=== PATIENT | male | born 1970 | race Caucasian/White ===

== ENCOUNTER 2017-04-01 18:15 | Observation (INO) ==
[2017-04-01] MEDS ORDERED: ASPIRIN 325 MG TABLET PO STA (19:39)
[2017-04-01] MEDS ORDERED: NITROGLYCERIN 2% OINT 1 INCH/GM PACK TOP STA (19:39)
[2017-04-01] MEDS ORDERED: ALUM/MAG/SIMETH/LIDO VISC 1:1 30 ML BOTTLE PO STA (19:39)
[2017-04-01] MEDS ORDERED: PANTOPRAZOLE 40 MG VIAL IV STA (19:39)
[2017-04-01] MEDS ORDERED: SODIUM CHLORIDE 0.9% 500 ML IV STA (19:39)
[2017-04-01] MEDS ORDERED: ONDANSETRON 4 MG/2 ML VIAL IV STA (19:39)
--- NOTE | 2017-04-01 19:42 | Emergency Department Note ---
Kennedi Davis Brittany, am scribing for, and in the presence of, Mariusz Flores MD 19:22. Sandra Davis Charles R, MD, personally performed the services described in this documentation, ascribed by Anahi Kolb in my presence, and it is both accurate and complete 942 . Arrival - Arrival Chief Complaint: Chest Pain Stated Complaint: Chest pains/elevated bp ED Nursing Triage Note: Chest pain onset x 3-4 hours - pt states that he has been drinking all day - pt very strong of ETOH Mode of Arrival: Wheelchair Limitations: No Limitations Source: Patient - History of Present Illness HPI Narrative: This is a 46 y/o white male,who presents to the ED with c/o CP which started 3- 4 hours ago. He states he was seen in [place], [place] for the same complaint last week and was told his BP was elevated. He was supposedly started on BP medication but has not taken the medication. He reports diaphoresis and nausea. Pt reports he has been drinking 5 beers today. Pt has no other complaints/pain in the ED at this time. Pt has a PMHx of Depression, HTN, and liver cirrhosis ( although at the time of the exam pt denies cirrhosis.). Pt denies a surgical hx. Pt denies a family medical Hx. Pt is a frequent drinker. Onset (ago): hour(s) (Started 3-4 hours ago.) Consistency: constant Severity: moderate Allergies/Adverse Reactions: Allergies Allergy/AdvReac Type Severity Reaction Status Date / Time No Known Allergies Allergy Verified 05/27/16 21:51 Home Medications: Home Medications Medication Instructions Recorded Confirmed Type Unknown Blood Pressure 0 mg PO DAILY 04/01/17 History Review of System - Review of System 12 point system: reviewed and no additional remarkable complaints except as stated - Review of System Constitutional: Present: diaphoresis Cardiovascular: Present: chest pain Gastrointestinal: Present: nausea Medical,Surgical,& Family Hx - Medical History Cardio: History of: Hypertension (Stopped meds x3 yrs ago.) Psychological: History of: Depression Neurology: No history of: Cerebrovascular Accident (Pt denies) Gastrointestinal: History of: Liver Problems (cirrohsis) - Social History Smoking Status: Never smoker Frequency of Alcohol Use: Frequently Type of Drug Use: None Exam Vital Signs: Vital Signs Temperature 97.2 F L 04/01/17 18:23 Pulse Rate 90 04/01/17 18:45 Respiratory Rate 19 04/01/17 18:45 Blood Pressure 122/82 04/01/17 18:45 O2 Sat by Pulse Oximetry 95 04/01/17 18:45 - General General appearance: appears intoxicated (Smells heavily of ETHO) - Eye Eye exam: Present: nystagmus - ENT ENT exam: Present: normal exam, normal oropharynx, mucous membranes moist, TM's normal bilaterally, normal external ear exam - Neck Neck exam: Present: normal inspection, full ROM, trachea midline. Absent: tenderness, meningismus, lymphadenopathy, thyromegaly - Chest Chest inspection: Present: normal inspection, symmetric chest wall rise, tenderness (Lower Chest wall tendnerness). Absent: rash, abscess - Respiratory Respiratory exam: Present: rhonchi (Bilateral Rhonic) - Cardiovascular Cardiovascular exam: Present: bradycardia, normal heart sounds. Absent: murmur , rubs, gallop, clicks - Abdominal Exam Abdominal exam: Present: soft, normal bowel sounds. Absent: distention, tenderness, guarding, rebound, rigidity - Rectal Exam Rectal exam: Present: deferred - Extremities Exam Extremities exam: Present: normal inspection, full ROM, normal capillary refill. Absent: tenderness, pedal edema, joint swelling, calf tenderness - Back Exam Back exam: Present: normal inspection, full ROM. Absent: tenderness, muscle spasm, rashes - Neurological Exam Neurological exam: Present: alert, oriented X3, CN II-XII intact. Absent: motor sensory deficit - Psychiatric Psychiatric exam: Present: normal affect, normal mood. Absent: depressed, agitated, anxious, flat affect, manic - Skin Skin exam: Present: warm, dry, intact, normal color. Absent: rash, cyanosis, diaphoresis, erythema, pallor, mottled Course - Consultations Consultation #1: Hospitalist will admit patient Time: 21:43 Results - Labs CBC & BMP: 04/01/17 19:40 04/01/17 19:40 Lab Results: I have reviewed the patients labs Labs: Laboratory Tests 04/01/17 04/01/17 04/01/17 19:40 19:40 19:40 WBC RBC Hgb Hct MCV MCH MCHC RDW Plt Count MPV Neut % (Auto) Lymph % (Auto) [place] % (Auto) Eos % (Auto) Baso % (Auto) Neut # (Auto) Lymph # (Auto) [place] # (Auto) Eos # (Auto) Baso # (Auto) Immature Gran % Nucleated RBC % Immature Gran # Nucleated RBCs # INR 1.0 PT Patient/Control Mix 10.7 D-Dimer, Quantitative <= 0.5 Sodium 145 Potassium 3.7 Chloride 109 H Carbon Dioxide 26 Anion Gap 13.7 BUN 6 L Creatinine 0.70 GFR Calculation 111 BUN/Creatinine Ratio 8.00 Glucose 99 Calculated Osmolality 285.7 Calcium 8.1 L Magnesium 2.1 Total Bilirubin < 0.39 AST 55 H ALT 70 H Alkaline Phosphatase 125 H Troponin I < 0.015 Total Protein 7.2 Albumin 3.9 Globulin 3.3 Albumin/Globulin Ratio 1.1 Lipase 206.0 Urine Color Urine Appearance Urine pH Ur Specific [place] Urine Protein Urine Glucose (UA) Urine Ketones Urine Blood Urine Nitrate Urine Bilirubin Urine Urobilinogen Urine Leukocytes Urine RBC Urine WBC Ur Culture Indicated? Urine Opiates Screen Ur Barbiturates Screen Ur Phencyclidine Scrn U Amphetamine/Methamph U Benzodiazepines Scrn U Cocaine Metab Screen U Cannabinoids Screen 04/01/17 04/01/17 04/01/17 19:40 19:42 19:42 WBC 5.8 RBC 4.85 Hgb 15.7 Hct 45.0 MCV 92.8 MCH 32 MCHC 34.9 RDW 13.0 Plt Count 250 MPV 8.7 L Neut % (Auto) 49.7 Lymph % (Auto) 36.8 Tripp % (Auto) 10.3 Eos % (Auto) 1.7 Baso % (Auto) 1.0 H Neut # (Auto) 2.9 Lymph # (Auto) 2.2 Tripp # (Auto) 0.6 Eos # (Auto) 0.1 Baso # (Auto) 0.1 Immature Gran % 0.5 Nucleated RBC % 0.0 Immature Gran # 0.03 Nucleated RBCs # 0.00 INR PT Patient/Control Mix D-Dimer, Quantitative Sodium Potassium Chloride Carbon Dioxide Anion Gap BUN Creatinine GFR Calculation BUN/Creatinine Ratio Glucose Calculated Osmolality Calcium Magnesium Total Bilirubin AST ALT Alkaline Phosphatase Troponin I Total Protein Albumin Globulin Albumin/Globulin Ratio Lipase Urine Color Straw Urine Appearance Clear Urine pH 5.0 Ur Specific [place] 1.003 Urine Protein Negative Urine Glucose (UA) Negative Urine Ketones Negative Urine Blood Negative Urine Nitrate Negative Urine Bilirubin Negative Urine Urobilinogen < 2.0 H Urine Leukocytes Negative Urine RBC <1 Urine WBC <1 Ur Culture Indicated? Not indicated Urine Opiates Screen Negative Ur Barbiturates Screen Negative Ur Phencyclidine Scrn Negative U Amphetamine/Methamph Negative U Benzodiazepines Scrn Negative U Cocaine Metab Screen Negative U Cannabinoids Screen Negative Laboratory Tests 04/01/17 04/01/17 19:40 20:45 B-Natriuretic Peptide < 2 L Serum Alcohol 423 - Diagnostic Findings Procedure: Chest x-ray: report reviewed by me (Nothing acute. ) Disposition Clinical Impression: Chest pain, Acute alcohol intoxication, Elevated liver enzymes Case discussed with: patient Disposition: Still a Patient Condition: Stable Time of Disposition: 21:44
[2017-04-01] MEDS ORDERED: PANTOPRAZOLE 40 MG VIAL IV ONE (19:48)
[2017-04-01] MEDS ORDERED: NITROGLYCERIN 2% OINT 1 INCH/GM PACK TOP ONE (19:48)
[2017-04-01] MEDS ORDERED: ONDANSETRON 4 MG/2 ML VIAL ONE (19:48)
[2017-04-01] MEDS ORDERED: ASPIRIN 325 MG TABLET ONE (19:48)
[2017-04-01] MEDS ORDERED: ALUM/MAG/SIMETH/LIDO VISC 1:1 30 ML BOTTLE PO ONE (19:49)
[2017-04-01 19:50] LABS: Apearance,Urine CLEAR (Clear); Bilirubin,Urine Negative (Negative); Blood, Urine Negative (Negative); Glucose,Urine (UA) Negative (Negative); Ketones,Urine Negative (Negative); Nitrite,Urine Negative (Negative); Protein,Urine Negative; RBC,Urine <1 /HPF (0-4); Urine Color Straw (Yellow); Urine Specific Gravity 1.003 (1.001-1.035); Urine Urobilinogen < 2.0 EU/DL (0.2-1.0); WBC,Urine <1 /HPF (0-6)
[2017-04-01 19:54] LABS: Basophils # 0.1 10*3/uL (0.0-0.2); Eosinophils # 0.1 10*3/uL (0.0-0.87); Eosinophils % 1.7 % (0.00-10.9); Hemoglobin 15.7 GM/DL (14.0-18.0); Immature Granulocytes % 0.5 %; Immature Granulocytes Absolute 0.03 #; Lymphocytes # 2.2 10*3/uL (1.4-4.0); Lymphocytes % 36.8 % (21.2-54.2); Mean Corpuscular HGB Conc 34.9 GM/DL (32-36); Mean Corpuscular Hemoglobin 32 PG (27-34); Mean Corpuscular Volume 92.8 FL (87-102); Mean Platelet Volume 8.7 FL (9.6-12.0); Monocytes # 0.6 10*3/uL (0.11-0.8); Monocytes % 10.3 % (1.7-12.7); Neutrophils # 2.9 10*3/uL (1.4-7.4); Neutrophils % 49.7 % (38.7-73.9); Platelet Count 250 T/CUMM (130-400); Red Blood Count 4.85 MC/CUMM (3.8-5.5); White Blood Count 5.8 T/CUMM (4-12)
[2017-04-01 20:03] LABS: D-Dimer <= 0.5 MG/L FEU; PT Patient Result 10.7 SECS
[2017-04-01 20:07] LABS: Barbiturates Screen,Urine Negative (Negative); Benzodiazepines Screen,Urine Negative (Negative); Cannabinoid Screen,Urine Negative (Negative); Opiate Screen,Urine Negative (Negative); Phencyclidine Screen,Urine Negative (Negative)
--- NOTE | 2017-04-01 20:11 | XRay Report ---
Portable chest Date: 04/01/2017 Clinical history: Chest pain Comparison: 09/23/2016 Technique: Portable AP sitting chest Findings: The heart is normal in size. Calcified granulomata/nodes with minimal chronic scarring. Stable mediastinum and osseous structures. Impression: No acute cardiopulmonary pathology identified. PROCEDURE INTERPRETED AT [facility] DEPARTMENT OF RADIOLOGY Final Report Signed by: Dr. Adelia Petty
[2017-04-01 20:12] LABS: Alanine Aminotransferase 70 U/L (16-61); Albumin 3.9 G/DL (3.4-5.0); Alkaline Phosphatase 125 U/L (45-117); Aspartate Amino Transferase 55 U/L (0-37); Bilirubin,Total < 0.39 MG/DL (0.2-1.0); Blood Urea Nitrogen 6 MG/DL (7-18); Calcium 8.1 MG/DL (8.5-10.1); Glucose 99 MG/DL (74-106); Magnesium 2.1 MG/DL (1.8-2.4); Osmolality,Calculated 285.7 MOS/KG (273-304); Potassium 3.7 MMOL/L (3.5-5.1); Sodium 145 MMOL/L (136-145); Total Protein 7.2 G/DL (6.4-8.3)
[2017-04-01] MEDS ORDERED: SODIUM CHLORIDE 0.9% 1,000 ML IV STA (21:30)
[2017-04-01] MEDS ORDERED: BISACODYL 5 MG TABLET PO PRN (22:16)
[2017-04-01] MEDS ORDERED: ONDANSETRON 4 MG/2 ML VIAL IV PRN (22:16)
[2017-04-01] MEDS ORDERED: ACETAMINOPHEN 325 MG TABLET PO PRN (22:16)
[2017-04-01] MEDS ORDERED: LORazepam 2 MG/1 ML VIAL IV PRN (22:18)
--- NOTE | 2017-04-01 22:24 | Hospitalist History & Physical ---
Assessment and Plan (1) Chest pressure Status: Acute Current Visit: Yes (2) Acute alcohol intoxication Status: Acute Current Visit: Yes Qualifiers: Complication of substance-induced condition: with unspecified complication Qualified Code(s): F10.929 - Alcohol use, unspecified with intoxication, unspecified (3) Hypertension Status: Acute Current Visit: Yes Qualifiers: Hypertension type: essential hypertension Qualified Code(s): I10 - Essential (primary) hypertension (4) Medical non-compliance Status: Acute Current Visit: Yes (5) Alcohol dependence Status: Acute Assessment and plan: Plan: Observe on telemetry We will check another set of cardiac enzymes in the morning Supportive care for chest pressure Start antihypertensive medication Banana bag Current Visit: Yes Qualifiers: Substance use status: with intoxication Complication of substance-induced condition: with unspecified complication Qualified Code(s): F10.229 - Alcohol dependence with intoxication, unspecified History of Present Illness Chief complaint: Sharp chest pain followed by persistent chest pressure History of present illness: Mr. Scott is a 46 year old male with a history of hypertension, noncompliant with medications, alcoholism, questionable history of cirrhosis, apparently was sitting in his friend's truck when he had acute onset of sharp stabbing chest pain in the middle of his chest around 5 PM. This lasted a few seconds and since that time he has had severe chest heaviness/pressure. He states it feels like someone sitting on his chest. Pain did not radiate, pressure is located in the middle of the chest. He denies shortness of breath, diaphoresis, nausea or vomiting. Additionally he is intoxicated with an alcohol level of over 400. He has been in alcohol rehab before however over the last 2 weeks he began drinking again due to stress. He denies illicit drugs, smoking, and drug screen is negative. He never filled his blood pressure medications. He denies headache. He denies history of diabetes or heart disease. Home Medications Medication Instructions Recorded Confirmed Type Unknown Blood Pressure 0 mg PO DAILY 04/01/17 History Allergies Allergy/AdvReac Type Severity Reaction Status Date / Time No Known Allergies Allergy Verified 05/27/16 21:51 Medical,Surgical,& Family Hx - Medical History Cardio: History of: Hypertension (Stopped meds x3 yrs ago.) Psychological: History of: Depression, Psychiatric/Substance Abuse Tx (Alcohol rehab) Endocrine: No history of: Diabetes Mellitus (NIDDM) Respiratory: No history of: COPD Gastrointestinal: History of: Liver Problems (cirrohsis) - Surgical History Additional Surgical History: Patient denies history - Family History Family History: Reports;: Family Hypertension - Social History Smoking Status: Never smoker Frequency of Alcohol Use: Frequently Type of Drug Use: None Marital Status: Unknown Functional capacity: independent ambulation Review of systems: A 12 point review of systems is negative except as specified in the HPI Exam - Constitutional Vitals: Period Temp Pulse Resp BP Sys/Maharaj Pulse Ox Last 24 Hr 97.2 F-97.2 F 90-97 16-20 122-139/82-88 95-97 Exam: EXAM: CONSTITUTIONAL: Appears older than stated age, nontoxic, NAD HEENT: NC, AT, OP benign, CASSIE, EOMI CV: RRR no m/g/r RESP: clear B/L, no w/r/r GI: abd soft, NT, ND, +bowel sounds INTEGUMENTARY: no lesions or rash EXTREMITIES: no c/c/e NEURO: no focal deficits PSYCH: Intoxicated but oriented and cooperative Results - Labs CBC & BMP: 04/01/17 19:40 04/01/17 19:40 Lab Results: I have reviewed the past 24 hour labs - EKG EKG shows: sinus rhythm - Diagnostic Findings Procedure: Chest x-ray: image reviewed by me, report reviewed by me
[2017-04-01] MEDS ORDERED: THIAMINE INJ 100 MG, FOLIC ACID INJ 1 MG, MAGNESIUM SULF INJ 2 GM, MULTIVITAMIN INJ 10 ... IV SCH (22:30)
[2017-04-01] MEDS ORDERED: hydrALAZINE 20 MG/1 ML VIAL IV PRN (23:21)
[2017-04-02] MEDS: chlordiazePOXIDE 25 MG CAPSULE PO SCH ×3 (00:36→11:22)
[2017-04-02] MEDS: 1: THIAMINE INJ 100 MG, FOLIC ACID INJ 1 MG, MAGNESIUM SULF INJ 2 GM, MULTIVITAMIN INJ 1 IV SCH ×2 (00:36→11:33)
[2017-04-02 02:11] LABS: Basophils # 0.1 10*3/uL (0.0-0.2); Basophils % 1.2 % (0.0-0.8); Eosinophils # 0.1 10*3/uL (0.0-0.87); Eosinophils % 1.2 % (0.00-10.9); Hematocrit 41.1 VOL% (42.0-52.0); Hemoglobin 14.1 GM/DL (14.0-18.0); Immature Granulocytes % 0.4 %; Immature Granulocytes Absolute 0.02 #; Lymphocytes # 1.9 10*3/uL (1.4-4.0); Lymphocytes % 37.8 % (21.2-54.2); Mean Corpuscular HGB Conc 34.3 GM/DL (32-36); Mean Corpuscular Hemoglobin 32 PG (27-34); Mean Corpuscular Volume 93.4 FL (87-102); Mean Platelet Volume 8.4 FL (9.6-12.0); Monocytes # 0.4 10*3/uL (0.11-0.8); Monocytes % 8.6 % (1.7-12.7); Neutrophils # 2.6 10*3/uL (1.4-7.4); Neutrophils % 50.8 % (38.7-73.9); Platelet Count 204 T/CUMM (130-400); Red Cell Distribution Width 13.2 % (9.3-17.3); White Blood Count 5.1 T/CUMM (4-12)
[2017-04-02 02:47] LABS: Troponin I Only < 0.015 NG/ML (0.00-0.045)
[2017-04-02 02:48] LABS: Albumin 3.2 G/DL (3.4-5.0); Bilirubin,Total 0.5 MG/DL (0.2-1.0); Calcium 7.4 MG/DL (8.5-10.1); Magnesium 2.4 MG/DL (1.8-2.4); Osmolality,Calculated 286.6 MOS/KG (273-304); Potassium 4.3 MMOL/L (3.5-5.1); Risk Ratio 2.15; Total Protein 5.8 G/DL (6.4-8.3)
--- NOTE | 2017-04-02 04:55 | EKG Report ---
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
[2017-04-02] MEDS ORDERED: ENOXAPARIN 40 MG/0.4 ML SYRINGE SUBCUT SCH (09:00)
[2017-04-02] MEDS ORDERED: PANTOPRAZOLE 40 MG TABLET PO SCH (09:00)
--- NOTE | 2017-04-02 11:26 | Discharge Summary ---
Hospital Course - Hospital Course Hospital Course: Mr Scott presented to ER intoxicated with alcohol and complaining of atypical chest pain- 1 minute of epigastric/substernal stabbing pain then a fullness in that location that did not vary and had no associated symptoms. His troponins were normal times 5. His EKG showed no acute changes. His pain improved. He had been sober for 5.5 months but 2 weeks ago started drinking again and was intoxicated at presentation. He denies hematemesis or hematochezia or black stools. No nausea or vomiting and no NSAID use. He was started on BP meds that he hasn't taken about 2-3 weeks ago, an dhere his BP is good, though lower after librium given. I discussed with him that his labile blood pressure could be related to his drinking. He says he is going to stop now as he did before, stay away from his bad crowd in [place] and focus on work. I think the most likely cause of his chest pain is GERD and will send him home on protonix. If his chest pain returns he was instructed to return to the ER, and he may need stress testing. He can stop his antiHTN med. He has also been counseled to stop using tobacco for 5 minutes. He will take librium, protonix, and MVI at discharge. He should see his doctor this week. - Time spent with patient Time with patient DS: Greater than 30 minutes (exam, documentation, medicine reconciliation, discharge discussion) Diagnosis - Discharge Diagnosis (1) Atypical chest pain Status: Acute (2) Acute alcohol intoxication Status: Acute (3) Elevated liver enzymes Status: Acute (4) Medical non-compliance Status: Chronic (5) Alcohol dependence Status: Chronic Specialty Discharge - Follow Up or Referrals Follow up with: His, PCP [Other] (make him an appointment for this week with his PCP in [facility]) Discharge Plan - Discharge Data Disposition: Disch To Home/Self Care Condition at Discharge: Stable Discharge Diet: advance to your usual diet, other (stop drinking alcohol) - Discharge Medications New chlordiazePOXIDE [Librium] 10 mg PO TID #18 capsule Multivitamin with Folic Acid [One Daily Essential Tablet] 400 mcg PO DAILY # 100 tablet Pantoprazole Tab [Protonix Tab] 40 mg PO DAILY #30 tablet No Action Unknown Blood Pressure 0 mg PO DAILY - Follow Up or Referral Follow Up: His, PCP [Other] (make him an appointment for this week with his PCP in [facility]) - Forms/Instructions Exam - Constitutional Vitals: Period Temp Pulse Resp BP Sys/Maharaj Pulse Ox Last 24 Hr 97.2 F-99.0 F 82-97 16-20 94-145/50-99 95-100 General appearance: normal weight, no acute distress Exam: repeat Bp this am 117/65 - Head Head exam: Present: normocephalic, atraumatic - Eye Eye exam: Present: EOMI. Absent: scleral icterus - Respiratory Respiratory exam: Present: clear to auscultation bilaterally - Cardiovascular Cardiovascular exam: Present: regular rate and rhythm (chest wall not tender) - GI/Abdominal GI/Abdominal exam: Present: normal bowel sounds, soft. Absent: tenderness - Extremities Exam Extremities exam: Absent: edema - Neurological Exam Neurological exam: Present: alert, oriented X3, CN II-XII intact. Absent: motor sensory deficit - Skin Skin exam: Present: warm, dry. Absent: rash Discharge Results Labs on day of discharge: Labs from last 24 hours 04/02/17 04/02/17 04/02/17 02:03 02:03 02:03 WBC RBC Hgb Hct MCV MCH MCHC RDW Plt Count MPV Neut % (Auto) Lymph % (Auto) [place] % (Auto) Eos % (Auto) Baso % (Auto) Neut # (Auto) Lymph # (Auto) [place] # (Auto) Eos # (Auto) Baso # (Auto) Immature Gran % Nucleated RBC % Immature Gran # Nucleated RBCs # INR PT Patient/Control Mix D-Dimer, Quantitative Sodium Potassium Chloride Carbon Dioxide Anion Gap BUN Creatinine GFR Calculation BUN/Creatinine Ratio Glucose Hemoglobin A1c 5.5 Calculated Osmolality Calcium Magnesium Total Bilirubin AST ALT Alkaline Phosphatase Total Creatine Kinase 120 CK-MB (CK-2) 1.3 Troponin I < 0.015 < 0.015 B-Natriuretic Peptide Total Protein Albumin Globulin Albumin/Globulin Ratio Triglycerides Cholesterol LDL Cholesterol VLDL Cholesterol HDL Cholesterol Heart Disease Risk Ratio Lipase Urine Color Urine Appearance Urine pH Ur Specific [place] Urine Protein Urine Glucose (UA) Urine Ketones Urine Blood Urine Nitrate Urine Bilirubin Urine Urobilinogen Urine Leukocytes Urine RBC Urine WBC Ur Culture Indicated? Urine Opiates Screen Ur Barbiturates Screen Ur Phencyclidine Scrn U Amphetamine/Methamph U Benzodiazepines Scrn U Cocaine Metab Screen U Cannabinoids Screen Serum Alcohol 04/02/17 04/02/17 04/01/17 02:03 02:03 23:15 WBC 5.1 RBC 4.40 Hgb 14.1 Hct 41.1 L MCV 93.4 MCH 32 MCHC 34.3 RDW 13.2 Plt Count 204 MPV 8.4 L Neut % (Auto) 50.8 Lymph % (Auto) 37.8 [place] % (Auto) 8.6 Eos % (Auto) 1.2 Baso % (Auto) 1.2 H Neut # (Auto) 2.6 Lymph # (Auto) 1.9 [place] # (Auto) 0.4 Eos # (Auto) 0.1 Baso # (Auto) 0.1 Immature Gran % 0.4 Nucleated RBC % 0.0 Immature Gran # 0.02 Nucleated RBCs # 0.00 INR PT Patient/Control Mix D-Dimer, Quantitative Sodium 146 H Potassium 4.3 Chloride 113 H Carbon Dioxide 24 Anion Gap 13.3 BUN 7 Creatinine 0.70 GFR Calculation 117 BUN/Creatinine Ratio 10.00 Glucose 78 Hemoglobin A1c Calculated Osmolality 286.6 Calcium 7.4 L Magnesium 2.4 Total Bilirubin 0.50 AST 43 H ALT 57 Alkaline Phosphatase 109 Total Creatine Kinase CK-MB (CK-2) Troponin I < 0.015 B-Natriuretic Peptide Total Protein 5.8 L Albumin 3.2 L Globulin 2.6 Albumin/Globulin Ratio 1.2 Triglycerides 65 Cholesterol 181 LDL Cholesterol 78.0 VLDL Cholesterol 13.0 HDL Cholesterol 84 H Heart Disease Risk Ratio 2.15 Lipase Urine Color Urine Appearance Urine pH Ur Specific [place] Urine Protein Urine Glucose (UA) Urine Ketones Urine Blood Urine Nitrate Urine Bilirubin Urine Urobilinogen Urine Leukocytes Urine RBC Urine WBC Ur Culture Indicated? Urine Opiates Screen Ur Barbiturates Screen Ur Phencyclidine Scrn U Amphetamine/Methamph U Benzodiazepines Scrn U Cocaine Metab Screen U Cannabinoids Screen Serum Alcohol 04/01/17 04/01/17 04/01/17 20:45 20:44 19:42 WBC RBC Hgb Hct MCV MCH MCHC RDW Plt Count MPV Neut % (Auto) Lymph % (Auto) [place] % (Auto) Eos % (Auto) Baso % (Auto) Neut # (Auto) Lymph # (Auto) [place] # (Auto) Eos # (Auto) Baso # (Auto) Immature Gran % Nucleated RBC % Immature Gran # Nucleated RBCs # INR PT Patient/Control Mix D-Dimer, Quantitative Sodium Potassium Chloride Carbon Dioxide Anion Gap BUN Creatinine GFR Calculation BUN/Creatinine Ratio Glucose Hemoglobin A1c Calculated Osmolality Calcium Magnesium Total Bilirubin AST ALT Alkaline Phosphatase Total Creatine Kinase CK-MB (CK-2) Troponin I < 0.015 B-Natriuretic Peptide Total Protein Albumin Globulin Albumin/Globulin Ratio Triglycerides Cholesterol LDL Cholesterol VLDL Cholesterol HDL Cholesterol Heart Disease Risk Ratio Lipase Urine Color Urine Appearance Urine pH Ur Specific [place] Urine Protein Urine Glucose (UA) Urine Ketones Urine Blood Urine Nitrate Urine Bilirubin Urine Urobilinogen Urine Leukocytes Urine RBC Urine WBC Ur Culture Indicated? Urine Opiates Screen Negative Ur Barbiturates Screen Negative Ur Phencyclidine Scrn Negative U Amphetamine/Methamph Negative U Benzodiazepines Scrn Negative U Cocaine Metab Screen Negative U Cannabinoids Screen Negative Serum Alcohol 423 04/01/17 04/01/17 04/01/17 19:42 19:40 19:40 WBC 5.8 RBC 4.85 Hgb 15.7 Hct 45.0 MCV 92.8 MCH 32 MCHC 34.9 RDW 13.0 Plt Count 250 MPV 8.7 L Neut % (Auto) 49.7 Lymph % (Auto) 36.8 [place] % (Auto) 10.3 Eos % (Auto) 1.7 Baso % (Auto) 1.0 H Neut # (Auto) 2.9 Lymph # (Auto) 2.2 [place] # (Auto) 0.6 Eos # (Auto) 0.1 Baso # (Auto) 0.1 Immature Gran % 0.5 Nucleated RBC % 0.0 Immature Gran # 0.03 Nucleated RBCs # 0.00 INR PT Patient/Control Mix D-Dimer, Quantitative Sodium Potassium Chloride Carbon Dioxide Anion Gap BUN Creatinine GFR Calculation BUN/Creatinine Ratio Glucose Hemoglobin A1c Calculated Osmolality Calcium Magnesium Total Bilirubin AST ALT Alkaline Phosphatase Total Creatine Kinase CK-MB (CK-2) Troponin I B-Natriuretic Peptide < 2 L Total Protein Albumin Globulin Albumin/Globulin Ratio Triglycerides Cholesterol LDL Cholesterol VLDL Cholesterol HDL Cholesterol Heart Disease Risk Ratio Lipase Urine Color Straw Urine Appearance Clear Urine pH 5.0 Ur Specific [place] 1.003 Urine Protein Negative Urine Glucose (UA) Negative Urine Ketones Negative Urine Blood Negative Urine Nitrate Negative Urine Bilirubin Negative Urine Urobilinogen < 2.0 H Urine Leukocytes Negative Urine RBC <1 Urine WBC <1 Ur Culture Indicated? Not indicated Urine Opiates Screen Ur Barbiturates Screen Ur Phencyclidine Scrn U Amphetamine/Methamph U Benzodiazepines Scrn U Cocaine Metab Screen U Cannabinoids Screen Serum Alcohol 04/01/17 04/01/17 04/01/17 19:40 19:40 19:40 WBC RBC Hgb Hct MCV MCH MCHC RDW Plt Count MPV Neut % (Auto) Lymph % (Auto) [place] % (Auto) Eos % (Auto) Baso % (Auto) Neut # (Auto) Lymph # (Auto) [place] # (Auto) Eos # (Auto) Baso # (Auto) Immature Gran % Nucleated RBC % Immature Gran # Nucleated RBCs # INR 1.0 PT Patient/Control Mix 10.7 D-Dimer, Quantitative <= 0.5 Sodium 145 Potassium 3.7 Chloride 109 H Carbon Dioxide 26 Anion Gap 13.7 BUN 6 L Creatinine 0.70 GFR Calculation 111 BUN/Creatinine Ratio 8.00 Glucose 99 Hemoglobin A1c Calculated Osmolality 285.7 Calcium 8.1 L Magnesium 2.1 Total Bilirubin < 0.39 AST 55 H ALT 70 H Alkaline Phosphatase 125 H Total Creatine Kinase CK-MB (CK-2) Troponin I < 0.015 B-Natriuretic Peptide Total Protein 7.2 Albumin 3.9 Globulin 3.3 Albumin/Globulin Ratio 1.1 Triglycerides Cholesterol LDL Cholesterol VLDL Cholesterol HDL Cholesterol Heart Disease Risk Ratio Lipase 206.0 Urine Color Urine Appearance Urine pH Ur Specific [place] Urine Protein Urine Glucose (UA) Urine Ketones Urine Blood Urine Nitrate Urine Bilirubin Urine Urobilinogen Urine Leukocytes Urine RBC Urine WBC Ur Culture Indicated? Urine Opiates Screen Ur Barbiturates Screen Ur Phencyclidine Scrn U Amphetamine/Methamph U Benzodiazepines Scrn U Cocaine Metab Screen U Cannabinoids Screen Serum Alcohol DS: Provider Date of admission: 04/01/17 22:16 Primary care physician: . No PCP Attending physician on admission: Agustín Gonzalez DO Consults: 04/01/17 23:36 Consult to Pastoral Services [CONS] Routine Comment: Pastoral Screen: Request Clinical Neuropsychologist Visit Pastoral Screen Source of Request: Patient Discharging clinician: Felicia Abbott MD
[2017-04-02 11:40] VITALS: BP 117/65
[2017-04-03] MEDS ORDERED: SODIUM CHLORIDE 0.9% 1,000 ML IV SCH (16:30)
== END 2017-04-02 13:35 | disposition home or self-care (01) ==
LOC: N.ED 18:15 → N.EDINP 18:15 → SUATTDRO 22:16 → N.TELEN 22:48
PROVIDERS: ADMIT Internal Medicine; ATTEND Internal Medicine

== ENCOUNTER 2017-04-22 19:45 | Observation (INO) ==
[2017-04-22] MEDS ORDERED: PANTOPRAZOLE 40 MG VIAL IV STA (20:46)
[2017-04-22] MEDS ORDERED: ALUM/MAG/SIMETH/LIDO VISC 1:1 30 ML BOTTLE PO STA (20:46)
[2017-04-22] MEDS ORDERED: MORPHINE 2 MG/1 ML SYRINGE IV STA (20:46)
[2017-04-22] MEDS ORDERED: SODIUM CHLORIDE 0.9% 1,000 ML IV STA (20:46)
[2017-04-22] MEDS ORDERED: ONDANSETRON 4 MG/2 ML VIAL IV STA (20:46)
[2017-04-22] MEDS ORDERED: MORPHINE 2 MG/1 ML SYRINGE ONE (20:53)
[2017-04-22] MEDS ORDERED: ONDANSETRON 4 MG/2 ML VIAL ONE (20:53)
[2017-04-22] MEDS ORDERED: PANTOPRAZOLE 40 MG VIAL IV ONE (20:53)
[2017-04-22] MEDS ORDERED: ALUM/MAG/SIMETH/LIDO VISC 1:1 30 ML BOTTLE PO ONE (20:54)
[2017-04-22 21:03] LABS: Basophils # 0.1 10*3/uL (0.0-0.2); Basophils % 1.3 % (0.0-0.8); Eosinophils # 0.1 10*3/uL (0.0-0.87); Eosinophils % 0.8 % (0.00-10.9); Hematocrit 49.5 VOL% (42.0-52.0); Hemoglobin 17.1 GM/DL (14.0-18.0); Immature Granulocytes % 0.4 %; Immature Granulocytes Absolute 0.03 #; Lymphocytes # 3.3 10*3/uL (1.4-4.0); Lymphocytes % 41.8 % (21.2-54.2); Mean Corpuscular HGB Conc 34.5 GM/DL (32-36); Mean Corpuscular Hemoglobin 33 PG (27-34); Mean Corpuscular Volume 94.1 FL (87-102); Mean Platelet Volume 8.6 FL (9.6-12.0); Monocytes # 0.9 10*3/uL (0.11-0.8); Monocytes % 10.8 % (1.7-12.7); Neutrophils # 3.5 10*3/uL (1.4-7.4); Neutrophils % 44.9 % (38.7-73.9); Platelet Count 240 T/CUMM (130-400); Red Blood Count 5.26 MC/CUMM (3.8-5.5); Red Cell Distribution Width 13.6 % (9.3-17.3); White Blood Count 7.8 T/CUMM (4-12)
[2017-04-22 21:26] LABS: Alanine Aminotransferase 64 U/L (16-61); Albumin 4.5 G/DL (3.4-5.0); Alkaline Phosphatase 143 U/L (45-117); Amylase 54 U/L (25-115); Aspartate Amino Transferase 77 U/L (0-37); Bilirubin,Total < 0.39 MG/DL (0.2-1.0); Blood Urea Nitrogen 5 MG/DL (7-18); Calcium 8.5 MG/DL (8.5-10.1); Glucose 104 MG/DL (74-106); Magnesium 2.5 MG/DL (1.8-2.4); Osmolality,Calculated 282.8 MOS/KG (273-304); Potassium 3.9 MMOL/L (3.5-5.1); Sodium 144 MMOL/L (136-145); Total Protein 8.3 G/DL (6.4-8.3); Troponin I Only < 0.015 NG/ML (0.00-0.045)
[2017-04-22 21:35] LABS: Lactic Acid 2.4 MMOL/L (0.4-2.0)
--- NOTE | 2017-04-22 21:50 | Emergency Department Note ---
Kennedi Davis Brittany, am scribing for, and in the presence of, Mariusz Flores MD 20:53. Sandra Davis Charles R, MD, personally performed the services described in this documentation, ascribed by Anahi Kolb in my presence, and it is both accurate and complete . Arrival - Arrival Chief Complaint: Chest Pain Stated Complaint: CHEST PAIN ED Nursing Triage Note: C/O CHEST PAIN WITH ONSET YESTERDAY. PT IS NOT WILLING TO ANSWER QUESTIONS IN TRIAGE. +ETOH Mode of Arrival: Ambulatory Limitations: No Limitations Source: Patient Time Seen by Provider: 04/22/17 20:36 - History of Present Illness HPI Narrative: This is a 46 y/o white male, who presents to the ED with c/o abdominal pain which started last month. He localizes the abdominal pain to the upper gastric area. He states he was seen here last month and stayed 2 days. He reports his best friend 2 days ago, and he had burry him today. He has a known hx of cirrohsis and is currently in rehab for alcohol abuse. He is not welling to answer questions and seems agitated. Pt has no other complaints/pain in the ED at this time. Pt has a PMHx of HTN, depression, and cirrohsis. Pt denies a surgical Hx. Pt has a family medical Hx of HTN. Pt is a frequent drinker, but denies the use of street drugs and tobacco products. Pt is in rehab for alcohol abuse. Onset (ago): day(s) (Started yesterday) Consistency: constant Severity: moderate Allergies/Adverse Reactions: Allergies Allergy/AdvReac Type Severity Reaction Status Date / Time No Known Allergies Allergy Verified 05/27/16 21:51 Home Medications: Home Medications Medication Instructions Recorded Confirmed Type Unknown Blood Pressure 0 mg PO DAILY 04/01/17 History Multivitamin with Folic Acid [One 400 mcg PO DAILY #100 tablet 04/02/17 Rx Daily Essential Tablet] Pantoprazole Tab [Protonix Tab] 40 mg PO DAILY #30 tablet 04/02/17 Rx chlordiazePOXIDE [Librium] 10 mg PO TID #18 capsule 04/02/17 Rx Review of System - Review of System 12 point system: reviewed and no additional remarkable complaints except as stated - Review of System Gastrointestinal: Present: abdominal pain Medical,Surgical,& Family Hx - Medical History Cardio: History of: Hypertension (Stopped meds x3 yrs ago.) Psychological: History of: Depression, Psychiatric/Substance Abuse Tx (Alcohol rehab) Neurology: No history of: Cerebrovascular Accident (Pt denies) Endocrine: No history of: Diabetes Mellitus (NIDDM) Respiratory: No history of: COPD Gastrointestinal: History of: Liver Problems (cirrohsis) - Family History Family History: Reports;: Family Hypertension - Social History Smoking Status: Never smoker Frequency of Alcohol Use: Frequently Type of Drug Use: None Exam Vital Signs: Vital Signs Temperature 98.7 F 04/22/17 20:47 Pulse Rate 105 H 04/22/17 20:47 Respiratory Rate 20 04/22/17 20:47 Blood Pressure 147/104 04/22/17 20:47 O2 Sat by Pulse Oximetry 100 04/22/17 21:13 - General Exam limited due to: uncooperative (Pt does not want to answer questions ) General appearance: alert, in no apparent distress, appears intoxicated (Seems of alcohol ) - Head Head exam: Present: atraumatic, normocephalic, normal inspection - Eye Eye exam: Present: normal appearance, PERRL, EOMI. Absent: nystagmus, miosis, mydriasis - ENT ENT exam: Present: normal exam, normal oropharynx, mucous membranes moist, TM's normal bilaterally, normal external ear exam - Neck Neck exam: Present: normal inspection, full ROM, trachea midline. Absent: tenderness, meningismus, lymphadenopathy, thyromegaly - Chest Chest inspection: Present: normal inspection, symmetric chest wall rise. Absent : tenderness, rash, abscess - Respiratory Respiratory exam: Present: normal lung sounds bilaterally. Absent: respiratory distress, rhonchi, stridor, wheezes - Cardiovascular Cardiovascular exam: Present: normal rhythm, tachycardia, normal heart sounds. Absent: murmur, rubs, gallop - Abdominal Exam Abdominal exam: Present: soft, tenderness (Epigastric tenderness), normal bowel sounds. Absent: distention, guarding, rebound, rigidity - Extremities Exam Extremities exam: Present: normal inspection, full ROM, normal capillary refill. Absent: tenderness, pedal edema, joint swelling, calf tenderness - Back Exam Back exam: Present: normal inspection, full ROM. Absent: tenderness, muscle spasm, rashes - Neurological Exam Neurological exam: Present: alert, oriented X3, CN II-XII intact. Absent: motor sensory deficit - Psychiatric Psychiatric exam: Present: agitated. Absent: anxious, flat affect, manic - Skin Skin exam: Present: warm, dry, intact, normal color. Absent: rash, cyanosis, diaphoresis, erythema, pallor, mottled Course - Consultations Consultation #1: Hospitalist will admit patient Time: 22:50 Results - Labs CBC & BMP: 04/22/17 20:53 04/22/17 20:53 Lab Results: I have reviewed the patients labs Labs: Laboratory Tests 04/22/17 04/22/17 20:53 20:53 WBC 7.8 RBC 5.26 Hgb 17.1 Hct 49.5 MCV 94.1 MCH 33 MCHC 34.5 RDW 13.6 Plt Count 240 MPV 8.6 L Neut % (Auto) 44.9 Lymph % (Auto) 41.8 [place] % (Auto) 10.8 Eos % (Auto) 0.8 Baso % (Auto) 1.3 H Neut # (Auto) 3.5 Lymph # (Auto) 3.3 [place] # (Auto) 0.9 H Eos # (Auto) 0.1 Baso # (Auto) 0.1 Immature Gran % 0.4 Nucleated RBC % 0.0 Immature Gran # 0.03 Nucleated RBCs # 0.00 Sodium 144 Potassium 3.9 Chloride 106 Carbon Dioxide 25 Anion Gap 16.9 H BUN 5 L Creatinine 0.80 GFR Calculation 106 BUN/Creatinine Ratio 6.00 Glucose 104 Calculated Osmolality 282.8 Calcium 8.5 Magnesium 2.5 H Total Bilirubin < 0.39 AST 77 H ALT 64 H Alkaline Phosphatase 143 H Troponin I < 0.015 Total Protein 8.3 Albumin 4.5 Globulin 3.8 H Albumin/Globulin Ratio 1.1 Amylase 54 Lipase 220.0 Serum Alcohol 446 Disposition Clinical Impression: Abdominal pain, Acute alcohol intoxication, Chest pain, Elevated liver enzymes , Hypertension, Medical non-compliance, Alcohol dependence, Atypical chest pain Case discussed with: patient Disposition: Still a Patient Condition: Stable Time of Disposition: 22:53
--- NOTE | 2017-04-22 22:40 | Hospitalist History & Physical ---
Assessment and Plan (1) Acute alcohol intoxication Status: Acute Current Visit: No Qualifiers: Complication of substance-induced condition: with unspecified complication Qualified Code(s): F10.929 - Alcohol use, unspecified with intoxication, unspecified (2) Atypical chest pain Status: Acute Current Visit: No (3) Elevated liver enzymes Status: Acute Current Visit: No (4) Hypertension Status: Acute Current Visit: No Qualifiers: Hypertension type: essential hypertension Qualified Code(s): I10 - Essential (primary) hypertension (5) Medical non-compliance Status: Chronic Assessment and plan: We are going to admit patient our service. He has a mildly bumped lactate level going to give him IV fluids and repeat the lab in the morning he does not appear toxic or septic. Blood pressure is normal. Suspect that he has gastritis. He comes in and out of the hospital low because of his chest pain. We previously had admitted him and ruled him out and sent him out. This time will consult cardiology for their evaluation. I will also order liver ultrasound in the morning. Current Visit: No History of Present Illness Chief complaint: Chest pain/abdominal pain History of present illness: Mr. Scott is a 46 year old male with past medical history significant for alcoholism and cirrhosis who is in his normal state of health until the past week or so. Patient's initially complained about abdominal pain. His this been going off and on for the past week. He was recently admitted for the hospital and ruled out and did not have his prescriptions filled. There is no real associated fashion with food. It is very sharp. He currently denies the pain now. He also says there is a chest pain that comes and goes. It is a tight sensation in his upper chest. And he is concerned that he is having heart trouble. He is an alcoholic. He he has a chronic alcohol level of 446. He does not appear to be as intoxicated as one would think at this level. . He is very emotional about the of a recent friend. He says that now he is given up alcohol because that was his drinking mahendra. Home Medications Medication Instructions Recorded Confirmed Type Unknown Blood Pressure 0 mg PO DAILY 04/01/17 History Multivitamin with Folic Acid [One 400 mcg PO DAILY #100 tablet 04/02/17 Rx Daily Essential Tablet] Pantoprazole Tab [Protonix Tab] 40 mg PO DAILY #30 tablet 04/02/17 Rx chlordiazePOXIDE [Librium] 10 mg PO TID #18 capsule 04/02/17 Rx Allergies Allergy/AdvReac Type Severity Reaction Status Date / Time No Known Allergies Allergy Verified 05/27/16 21:51 Medical,Surgical,& Family Hx - Medical History Cardio: History of: Hypertension (Stopped meds x3 yrs ago.) Psychological: History of: Depression, Psychiatric/Substance Abuse Tx (Alcohol rehab) Neurology: No history of: Cerebrovascular Accident (Pt denies) Endocrine: No history of: Diabetes Mellitus (NIDDM) Respiratory: No history of: COPD Gastrointestinal: History of: Liver Problems (cirrohsis) - Surgical History Surgical History: noncontributory (none) - Family History Family History: Reports;: Family Heart Disease, Family Hypertension - Social History Smoking Status: Never smoker Frequency of Alcohol Use: Frequently Type of Drug Use: None 12 point system: reviewed and no additional remarkable complaints except as stated Exam - Constitutional Vitals: Period Temp Pulse Resp BP Sys/Maharaj Pulse Ox Last 24 Hr 98.7 F-98.7 F 105-105 20-20 147-147/104-104 94-100 - General General appearance: alert, in no apparent distress, does have the smell of alcohol prominent - Head Head exam: Present: atraumatic, normocephalic, normal inspection - Eye Eye exam: Present: normal appearance, PERRL, EOMI. Absent: nystagmus, miosis, mydriasis - ENT ENT exam: Present: normal exam, normal oropharynx, mucous membranes moist, TM's normal bilaterally, normal external ear exam - Neck Neck exam: Present: normal inspection, full ROM, trachea midline. - Chest Chest inspection: Present: normal inspection, symmetric chest wall rise. - Respiratory Respiratory exam: Present: normal lung sounds bilaterally. - Cardiovascular Cardiovascular exam: Present: normal rhythm, tachycardia, normal heart sounds. Absent: murmur, rubs, gallop - Abdominal Exam Abdominal exam: Present: soft, tenderness (Epigastric tenderness), normal bowel sounds. - Extremities Exam Extremities exam: Present: normal inspection, full ROM, normal capillary refill. - Back Exam Back exam: Present: normal inspection, full ROM. - Neurological Exam Neurological exam: Present: alert, oriented X3, CN II-XII intact. - Psychiatric Psychiatric exam: Present: Depressed - Skin Skin exam: Present: warm, dry, intact, normal color. Absent: rash, cyanosis, diaphoresis, erythema, pallor, mottled Results - Labs CBC & BMP: 04/22/17 20:53 04/22/17 20:53
[2017-04-22] MEDS ORDERED: MORPHINE 2 MG/1 ML SYRINGE IV PRN (22:50)
[2017-04-22] MEDS ORDERED: ONDANSETRON 4 MG/2 ML VIAL IV PRN (22:50)
[2017-04-22] MEDS ORDERED: LORazepam 2 MG/1 ML VIAL IV PRN (22:55)
[2017-04-22] MEDS ORDERED: ENOXAPARIN 40 MG/0.4 ML SYRINGE SUBCUT SCH (23:00)
[2017-04-23] MEDS: NITROGLYCERIN 2% OINT 1 INCH/GM PACK TOP SCH ×2 (00:48→07:15)
[2017-04-23 00:51] LABS: Risk Ratio 1.97; VLDL CHOLESTEROL 16.4 MG/DL
[2017-04-23 05:31] LABS: Lactic Acid 2.5 MMOL/L (0.4-2.0)
[2017-04-23 06:14] LABS: Calcium 7.7 MG/DL (8.5-10.1); Magnesium 2.5 MG/DL (1.8-2.4); Osmolality,Calculated 284.7 MOS/KG (273-304)
--- NOTE | 2017-04-23 07:38 | XRay Report ---
XR abdomen 2V Clinical Information: Abdominal Pain , constipation Comparison: None Findings: Bowel gas pattern is nonspecific and within normal limits. No abnormally dilated small bowel loops are identified to suggest obstruction. There is no free air identified. Scattered fecal material is noted throughout colon, which is otherwise nondilated. No abnormal focal soft tissue masses or calcific densities are identified in the abdomen or pelvis. Lung bases appear predominantly clear. There is no acute osseous abnormality. No suspicious osseous lesions are identified. Impression: No acute radiographic abnormality in the abdomen. A mild degree of fecal stasis/constipation is suspected. PROCEDURE INTERPRETED AT [facility] DEPARTMENT OF RADIOLOGY Final Report Signed by: Vu Yusuf
--- NOTE | 2017-04-23 07:38 | XRay Report ---
Exam: XR chest 1V portable Indication: Abdominal pain Comparison study: Prior chest radiograph 04/01/2017 Findings: The heart, mediastinum and bony structures are stable from prior. There is no focal consolidation, pneumothorax or pleural effusion identified. Impression: No acute cardiopulmonary process. No significant change from prior. PROCEDURE INTERPRETED AT [facility] DEPARTMENT OF RADIOLOGY Final Report Signed by: Vu Yusuf
--- NOTE | 2017-04-23 07:50 | Ultrasound Report ---
History is abdominal pain The liver is 14.3 cm in length. Pancreatic echotexture is within normal limits No gallstones or biliary ductal dilatation seen No right renal hydronephrosis seen The pancreas is obscured by overlying bowel gas. IVC and aorta are obscured by bowel gas Impression: 1. Midline retroperitoneal structures obscured, otherwise no acute pathology seen PROCEDURE INTERPRETED AT [facility] DEPARTMENT OF RADIOLOGY Final Report Signed by: Dr. Ronda Vaca
--- NOTE | 2017-04-23 07:54 | EKG Report ---
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
--- NOTE | 2017-04-23 07:54 | EKG Report ---
Stationary ECG Study [facility] ER Test Date: 04/22/2017 8:16:53 PM Pat Name: YVETTE CONTE Department: Room: 287 Gender: M [employer] Assistant: Aron : 1970 Requested by: Mariusz Ramos Order Number: [id number] Reading MD: YVETTE STEPHENS Intervals [place] Rate: 89 P: 73 NM: 148 QRS: 2 QRSD: 108 T: 59 QT: 343 QTc: 390 Interpretive Statements SINUS RHYTHM POSSIBLE INFERIOR INFARCT, PROBABLY OLD IF PRESENT Electronically Signed On 04-23-17 09:03:10 CDT by YVETTE STEPHENS [email or web address]
[2017-04-23] MEDS ORDERED: THIAMINE 100 MG TABLET PO SCH (09:00)
[2017-04-23] MEDS ORDERED: FOLIC ACID 1 MG TABLET PO SCH (09:00)
[2017-04-23] MEDS ORDERED: MULTIVITAMIN (CENTRUM) TABLET PO SCH (09:00)
[2017-04-23] MEDS ORDERED: ASPIRIN EC 325 MG TABLET PO SCH (09:00)
[2017-04-23] MEDS ORDERED: PANTOPRAZOLE 40 MG TABLET PO SCH ×2 (09:00)
[2017-04-23 09:07] LABS: Apearance,Urine CLEAR (Clear); Bacteria,Urine Occasional /HPF (Few); Bilirubin,Urine Negative (Negative); Blood, Urine Negative (Negative); Glucose,Urine (UA) Negative (Negative); Ketones,Urine Negative (Negative); Mucus,Urine Occasional /LPF (Occasional); Nitrite,Urine Negative (Negative); Protein,Urine Negative; RBC,Urine 1 /HPF (0-4); Urine Color Yellow (Yellow); Urine Specific Gravity 1.013 (1.001-1.035); Urine Urobilinogen < 2.0 EU/DL (0.2-1.0); WBC,Urine 1 /HPF (0-6)
[2017-04-23 09:14] LABS: Barbiturates Screen,Urine Negative (Negative); Benzodiazepines Screen,Urine Negative (Negative); Cannabinoid Screen,Urine Negative (Negative); Opiate Screen,Urine Positive (Negative); Phencyclidine Screen,Urine Negative (Negative)
--- NOTE | 2017-04-23 10:17 | Cardiology Consult Note ---
<Juju Dia E - Last Filed: 04/23/17 10:00> Assessment and Plan - Time spent with patient Time spent with patient: Greater than 30 minutes (1) Acute alcohol intoxication Status: Acute Assessment and plan: SEE PLAN OF CARE LISTED BELOW Current Visit: Yes Qualifiers: Complication of substance-induced condition: with unspecified complication Qualified Code(s): F10.929 - Alcohol use, unspecified with intoxication, unspecified (2) Elevated liver enzymes Status: Chronic Assessment and plan: SEE PLAN OF CARE LISTED BELOW Current Visit: Yes (3) Hypertension Status: Chronic Assessment and plan: SEE PLAN OF CARE LISTED BELOW Current Visit: Yes Qualifiers: Hypertension type: essential hypertension Qualified Code(s): I10 - Essential (primary) hypertension (4) Medical non-compliance Status: Chronic Assessment and plan: SEE PLAN OF CARE LISTED BELOW Current Visit: Yes (5) Alcohol dependence Status: Chronic Assessment and plan: SEE PLAN OF CARE LISTED BELOW Current Visit: Yes Qualifiers: Substance use status: with intoxication Complication of substance-induced condition: with unspecified complication Qualified Code(s): F10.229 - Alcohol dependence with intoxication, unspecified (6) Atypical chest pain Status: Acute Assessment and plan: SEE PLAN OF CARE LISTED BELOW Current Visit: Yes (7) Abdominal pain Status: Acute Assessment and plan: SEE PLAN OF CARE LISTED BELOW Current Visit: Yes History of Present Illness - Data of Consult Patient: new to practice Consult date: 04/23/17 Requesting Physician: Mark Delgado - Consult Narrative Reason for consult: chest pain History of present illness: SKIN PILER: (NEW) DR. WOOD Mr. Scott, 46WM, without known cardiac disease but risk factors significant for : Hypertension, noncompliance. History of cirrhosis of the liver, elevated liver enzymes, alcohol abuse. Patient presented to ED of [facility] last evening with complaints of abdominal pain radiating to his chest. This is been occurring for numerous months. He was recently admitted for the hospital and ruled out but did not get his prescriptions filled. Discomfort begins in the epigastric area and radiates up mid chest, described as tightness without additional radiation. It is not associated with shortness of breath, diaphoresis. He can identify no aggravating factors nor any alleviating factors. Rates the discomfort as a 7 on a scale of 1-10, currently chest pain- free. Lasts various amount of times but usually intermittently occurring over a period of 5-10 minutes. Cardiac biomarkers are negative, EKG does not reveal an acute event. Chest discomfort does not always occur when he is having epigastric discomfort. His epigastric discomfort is reproducible to light palpation. In the past, he was given PPI but did not get this filled. Patient can take 2 flights of stairs without chest pain, heaviness or tightness. Patient does drink daily and heavily. Best friend recently suddenly and this is upset him causing him to drink more heavily. Alcohol level 446 on admission. ALT, AST, alkaline phosphatase elevated. LDL 85. Patient was prescribed an antihypertensive recently but has not been taking because it made him "sleepy". Patient may be a candidate for outpatient stress testing, echocardiogram. Obviously, he would need to demonstrate some compliance was taking his medications to be considered for further cardiac workup. Suspect his chest pain is related to his epigastric pain. Recommend PPI daily without fail, alcohol cessation and take antihypertensives as previously prescribed. Will further discuss with Dr. Wood and await additional recommendations. ASSESSMENT/PLAN: 1. CHEST PAIN - suspect this may be GI related. Restart/continue PPI. May be a candidate for outpatient stress test, echocardiogram if he can demonstrate some compliance. 2. EPIGASTRIC PAIN - PPI. Deferred additional workup to attending. 3. HYPERTENSION - will adjust medications accordingly during hospital stay. 4. ALCOHOL ABUSE - greater than 5 minutes was spent discussing the merits of alcohol cessation. 5. NON-COMPLIANCE - reiterated the importance of compliance with medication and follow-up. CC: Monserrat Morton MD - Home Medications and Allergies Home Medications: Home Medications Medication Instructions Recorded Confirmed Type Unknown Blood Pressure 0 mg PO DAILY 04/01/17 History Multivitamin with Folic Acid [One 400 mcg PO DAILY #100 tablet 04/02/17 Rx Daily Essential Tablet] chlordiazePOXIDE [Librium] 10 mg PO TID #18 capsule 04/02/17 Rx Pantoprazole Tab [Protonix Tab] 40 mg PO BID #60 tablet 04/23/17 Rx Sucralfate Tab [Carafate Tab] 1 gm PO ACHS #120 tablet 04/23/17 Rx Allergies/Adverse Reactions: Allergies Allergy/AdvReac Type Severity Reaction Status Date / Time No Known Allergies Allergy Verified 05/27/16 21:51 Review of systems: REVIEW OF SYSTEMS: - Constitutional Constitutional: Absent: syncope, anorexia, night sweats - EENT Eyes: Absent: blurry vision, loss of vision, diplopia Ears: Absent: decreased hearing, ear pain, ear discharge - Cardiovascular Cardiovascular: Present: chest pain at various times but not necessarily with exertion. Denies dyspnea on exertion, edema, palpitations. Absent: chest pain with deep breath, claudication - Respiratory Respiratory: Denies WEINSTEIN, cough. Absent: wheezing, hemoptysis, change in phlegm color - Gastrointestinal Gastrointestinal: Denies constipation. Absent: abdominal pain, hematemesis, hematochezia, melena, change in bowel habits, nausea - Genitourinary Genitourinary: Absent: difficulty urinating, dysuria, urinary hesitancy, flank pain - Musculoskeletal Musculoskeletal: Present: back pain Absent: joint swelling, muscle cramps, muscle weakness - Neurological Neurological: Present: normal gait without frequent falls. Absent: dizziness, hemiparesis - Psychiatric Psychiatric: Absent: anxiety, depression, difficulty concentrating - Endocrine Endocrine: Present: fatigue. Absent: cold intolerance, heat intolerance, polyuria, polyphagia, polydipsia - Hematologic/Lymphatic Hematologic/Lymphatic: Present: easy bruising. Absent: easy bleeding -Integumentary Integumentary: Absent: lesions, rashes, skin breakdown Medical,Surgical,& Family Hx - Medical History Cardio: History of: Hypertension (Stopped meds x3 yrs ago.) No history of: Cardiac Dysrhythmia, CAD Psychological: History of: Depression, Psychiatric/Substance Abuse Tx (Alcohol rehab) Neurology: No history of: Cerebrovascular Accident (Pt denies) Endocrine: No history of: Diabetes Mellitus (NIDDM) Respiratory: No history of: COPD Gastrointestinal: History of: Liver Problems (cirrohsis) - Family History Family History: Reports;: Family Heart Disease, Family Hypertension - Social History Smoking Status: Never smoker Have you smoked in the last 12 months: No Frequency of Alcohol Use: Frequently Type of Drug Use: None Physical Examination Vital Signs Temp Pulse Resp BP Pulse Ox 98.7 F 105 H 20 147/104 94 L 04/22/17 20:12 04/22/17 20:12 04/22/17 20:12 04/22/17 20:12 04/22/17 20:12 General: [Appears well with no apparent distress.] [Pleasant and cooperative. ] [Appears comfortable.] HEENT: [PERRL, normocephalic, atraumatic. Mucous membranes moist. No jaundice noted. Conjunctiva moist and clear, sclerae anicteric] Neck: No JVD/HJR, no thyromegaly or lymphadenopathy noted. No carotid bruit appreciated Cardiac: [Regular rate and rhythm.] [No obvious murmur rub or gallop.] Lungs: [Clear to auscultation without accessory muscle use to assist the respiratory pattern.] Not requiring oxygen Abdomen: Soft, bowel sounds normoactive. Epigastric area tender to touch. No abdominal bruit or thrill noted. No masses noted. Musculoskeletal: No fluid collection. Decreased range of motion is noted. Extremities: No clubbing, cyanosis noted. [ No edema noted.] Upper extremity pulses 2+. Lower extremity pulses 2+. Capillary refill less than 3 seconds. Skin: No unusual lesions or rashes. No skin breakdown appreciated. Neuro: Awake, alert and oriented 3. Moves all extremities well without hemiparesis or paralysis. No essential tremor is appreciated. Result/EKG - Labs CBC & BMP: 04/22/17 20:53 04/23/17 04:03 Lab Results: I have reviewed the past 24 hour labs Labs: Laboratory Results - last 24 hr 04/22/17 04/22/17 04/22/17 20:53 20:53 23:55 WBC 7.8 RBC 5.26 Hgb 17.1 Hct 49.5 MCV 94.1 MCH 33 MCHC 34.5 RDW 13.6 Plt Count 240 MPV 8.6 L Neut % (Auto) 44.9 Lymph % (Auto) 41.8 [place] % (Auto) 10.8 Eos % (Auto) 0.8 Baso % (Auto) 1.3 H Neut # (Auto) 3.5 Lymph # (Auto) 3.3 [place] # (Auto) 0.9 H Eos # (Auto) 0.1 Baso # (Auto) 0.1 Immature Gran % 0.4 Nucleated RBC % 0.0 Immature Gran # 0.03 Nucleated RBCs # 0.00 Sodium 144 Potassium 3.9 Chloride 106 Carbon Dioxide 25 Anion Gap 16.9 H BUN 5 L Creatinine 0.80 GFR Calculation 106 BUN/Creatinine Ratio 6.00 Glucose 104 Calculated Osmolality 282.8 Lactic Acid 2.4 H Calcium 8.5 Magnesium 2.5 H Total Bilirubin < 0.39 AST 77 H ALT 64 H Alkaline Phosphatase 143 H Troponin I < 0.015 < 0.015 Total Protein 8.3 Albumin 4.5 Globulin 3.8 H Albumin/Globulin Ratio 1.1 Triglycerides Cholesterol LDL Cholesterol VLDL Cholesterol HDL Cholesterol Heart Disease Risk Ratio Amylase 54 Lipase 220.0 Urine Color Urine Appearance Urine pH Ur Specific [place] Urine Protein Urine Glucose (UA) Urine Ketones Urine Blood Urine Nitrate Urine Bilirubin Urine Urobilinogen Urine Leukocytes Urine RBC Urine WBC Urine Bacteria Urine Mucus Ur Culture Indicated? Urine Opiates Screen Ur Barbiturates Screen Ur Phencyclidine Scrn U Amphetamine/Methamph U Benzodiazepines Scrn U Cocaine Metab Screen U Cannabinoids Screen Serum Alcohol 446 04/22/17 04/23/17 04/23/17 23:55 04:03 04:03 WBC RBC Hgb Hct MCV MCH MCHC RDW Plt Count MPV Neut % (Auto) Lymph % (Auto) [place] % (Auto) Eos % (Auto) Baso % (Auto) Neut # (Auto) Lymph # (Auto) [place] # (Auto) Eos # (Auto) Baso # (Auto) Immature Gran % Nucleated RBC % Immature Gran # Nucleated RBCs # Sodium 145 Potassium 4.0 Chloride 111 H Carbon Dioxide 23 Anion Gap 15.0 BUN 7 Creatinine 0.70 GFR Calculation 112 BUN/Creatinine Ratio 10.00 Glucose 72 L Calculated Osmolality 284.7 Lactic Acid 2.5 H Calcium 7.7 L Magnesium 2.5 H Total Bilirubin AST ALT Alkaline Phosphatase Troponin I < 0.015 Total Protein Albumin Globulin Albumin/Globulin Ratio Triglycerides 82 Cholesterol 191 LDL Cholesterol 85.0 VLDL Cholesterol 16.4 HDL Cholesterol 97 H Heart Disease Risk Ratio 1.97 Amylase Lipase Urine Color Urine Appearance Urine pH Ur Specific [place] Urine Protein Urine Glucose (UA) Urine Ketones Urine Blood Urine Nitrate Urine Bilirubin Urine Urobilinogen Urine Leukocytes Urine RBC Urine WBC Urine Bacteria Urine Mucus Ur Culture Indicated? Urine Opiates Screen Ur Barbiturates Screen Ur Phencyclidine Scrn U Amphetamine/Methamph U Benzodiazepines Scrn U Cocaine Metab Screen U Cannabinoids Screen Serum Alcohol 04/23/17 04/23/17 08:30 08:30 WBC RBC Hgb Hct MCV MCH MCHC RDW Plt Count MPV Neut % (Auto) Lymph % (Auto) [place] % (Auto) Eos % (Auto) Baso % (Auto) Neut # (Auto) Lymph # (Auto) [place] # (Auto) Eos # (Auto) Baso # (Auto) Immature Gran % Nucleated RBC % Immature Gran # Nucleated RBCs # Sodium Potassium Chloride Carbon Dioxide Anion Gap BUN Creatinine GFR Calculation BUN/Creatinine Ratio Glucose Calculated Osmolality Lactic Acid Calcium Magnesium Total Bilirubin AST ALT Alkaline Phosphatase Troponin I Total Protein Albumin Globulin Albumin/Globulin Ratio Triglycerides Cholesterol LDL Cholesterol VLDL Cholesterol HDL Cholesterol Heart Disease Risk Ratio Amylase Lipase Urine Color Yellow Urine Appearance Clear Urine pH 5.0 Ur Specific [place] 1.013 Urine Protein Negative Urine Glucose (UA) Negative Urine Ketones Negative Urine Blood Negative Urine Nitrate Negative Urine Bilirubin Negative Urine Urobilinogen < 2.0 H Urine Leukocytes Negative Urine RBC 1 Urine WBC 1 Urine Bacteria Occasional Urine Mucus Occasional Ur Culture Indicated? Not indicated Urine Opiates Screen Positive H Ur Barbiturates Screen Negative Ur Phencyclidine Scrn Negative U Amphetamine/Methamph Negative U Benzodiazepines Scrn Negative U Cocaine Metab Screen Negative U Cannabinoids Screen Negative Serum Alcohol - Diagnostic Findings Procedure: Chest x-ray: report reviewed by me - EKG EKG results: interpreted by ok EKG shows: sinus rhythm <Rogelio Wood - Last Filed: 04/23/17 14:33> History of Present Illness - Consult Narrative History of present illness: Mr. Scott is a 46 year old male CC: Monserrat Morton MD Physical Examination Vital Signs Temp Pulse Resp BP Pulse Ox 98.7 F 105 H 20 147/104 94 L 04/22/17 20:12 04/22/17 20:12 04/22/17 20:12 04/22/17 20:12 04/22/17 20:12 Result/EKG - Labs CBC & BMP: 04/22/17 20:53 04/23/17 04:03 Labs: Laboratory Results - last 24 hr 04/22/17 04/22/17 04/22/17 20:53 20:53 23:55 WBC 7.8 RBC 5.26 Hgb 17.1 Hct 49.5 MCV 94.1 MCH 33 MCHC 34.5 RDW 13.6 Plt Count 240 MPV 8.6 L Neut % (Auto) 44.9 Lymph % (Auto) 41.8 [place] % (Auto) 10.8 Eos % (Auto) 0.8 Baso % (Auto) 1.3 H Neut # (Auto) 3.5 Lymph # (Auto) 3.3 [place] # (Auto) 0.9 H Eos # (Auto) 0.1 Baso # (Auto) 0.1 Immature Gran % 0.4 Nucleated RBC % 0.0 Immature Gran # 0.03 Nucleated RBCs # 0.00 Sodium 144 Potassium 3.9 Chloride 106 Carbon Dioxide 25 Anion Gap 16.9 H BUN 5 L Creatinine 0.80 GFR Calculation 106 BUN/Creatinine Ratio 6.00 Glucose 104 Calculated Osmolality 282.8 Lactic Acid 2.4 H Calcium 8.5 Magnesium 2.5 H Total Bilirubin < 0.39 AST 77 H ALT 64 H Alkaline Phosphatase 143 H Troponin I < 0.015 < 0.015 Total Protein 8.3 Albumin 4.5 Globulin 3.8 H Albumin/Globulin Ratio 1.1 Triglycerides Cholesterol LDL Cholesterol VLDL Cholesterol HDL Cholesterol Heart Disease Risk Ratio Amylase 54 Lipase 220.0 Urine Color Urine Appearance Urine pH Ur Specific [place] Urine Protein Urine Glucose (UA) Urine Ketones Urine Blood Urine Nitrate Urine Bilirubin Urine Urobilinogen Urine Leukocytes Urine RBC Urine WBC Urine Bacteria Urine Mucus Ur Culture Indicated? Urine Opiates Screen Ur Barbiturates Screen Ur Phencyclidine Scrn U Amphetamine/Methamph U Benzodiazepines Scrn U Cocaine Metab Screen U Cannabinoids Screen Serum Alcohol 446 04/22/17 04/23/17 04/23/17 23:55 04:03 04:03 WBC RBC Hgb Hct MCV MCH MCHC RDW Plt Count MPV Neut % (Auto) Lymph % (Auto) [place] % (Auto) Eos % (Auto) Baso % (Auto) Neut # (Auto) Lymph # (Auto) [place] # (Auto) Eos # (Auto) Baso # (Auto) Immature Gran % Nucleated RBC % Immature Gran # Nucleated RBCs # Sodium 145 Potassium 4.0 Chloride 111 H Carbon Dioxide 23 Anion Gap 15.0 BUN 7 Creatinine 0.70 GFR Calculation 112 BUN/Creatinine Ratio 10.00 Glucose 72 L Calculated Osmolality 284.7 Lactic Acid 2.5 H Calcium 7.7 L Magnesium 2.5 H Total Bilirubin AST ALT Alkaline Phosphatase Troponin I < 0.015 Total Protein Albumin Globulin Albumin/Globulin Ratio Triglycerides 82 Cholesterol 191 LDL Cholesterol 85.0 VLDL Cholesterol 16.4 HDL Cholesterol 97 H Heart Disease Risk Ratio 1.97 Amylase Lipase Urine Color Urine Appearance Urine pH Ur Specific [place] Urine Protein Urine Glucose (UA) Urine Ketones Urine Blood Urine Nitrate Urine Bilirubin Urine Urobilinogen Urine Leukocytes Urine RBC Urine WBC Urine Bacteria Urine Mucus Ur Culture Indicated? Urine Opiates Screen Ur Barbiturates Screen Ur Phencyclidine Scrn U Amphetamine/Methamph U Benzodiazepines Scrn U Cocaine Metab Screen U Cannabinoids Screen Serum Alcohol 04/23/17 04/23/17 08:30 08:30 WBC RBC Hgb Hct MCV MCH MCHC RDW Plt Count MPV Neut % (Auto) Lymph % (Auto) [place] % (Auto) Eos % (Auto) Baso % (Auto) Neut # (Auto) Lymph # (Auto) [place] # (Auto) Eos # (Auto) Baso # (Auto) Immature Gran % Nucleated RBC % Immature Gran # Nucleated RBCs # Sodium Potassium Chloride Carbon Dioxide Anion Gap BUN Creatinine GFR Calculation BUN/Creatinine Ratio Glucose Calculated Osmolality Lactic Acid Calcium Magnesium Total Bilirubin AST ALT Alkaline Phosphatase Troponin I Total Protein Albumin Globulin Albumin/Globulin Ratio Triglycerides Cholesterol LDL Cholesterol VLDL Cholesterol HDL Cholesterol Heart Disease Risk Ratio Amylase Lipase Urine Color Yellow Urine Appearance Clear Urine pH 5.0 Ur Specific [place] 1.013 Urine Protein Negative Urine Glucose (UA) Negative Urine Ketones Negative Urine Blood Negative Urine Nitrate Negative Urine Bilirubin Negative Urine Urobilinogen < 2.0 H Urine Leukocytes Negative Urine RBC 1 Urine WBC 1 Urine Bacteria Occasional Urine Mucus Occasional Ur Culture Indicated? Not indicated Urine Opiates Screen Positive H Ur Barbiturates Screen Negative Ur Phencyclidine Scrn Negative U Amphetamine/Methamph Negative U Benzodiazepines Scrn Negative U Cocaine Metab Screen Negative U Cannabinoids Screen Negative Serum Alcohol
--- NOTE | 2017-04-23 12:48 | Discharge Summary ---
Hospital Course - Hospital Course Hospital Course: 46-year-old white male admitted to the hospital with chest pain and abdominal epigastric pain. Patient is a chronic alcohol drinker and was inebriated at the time of admission with alcohol level of 446. His cardiac enzymes were negative. His pain is epigastric in nature. He was seen in consultation by cardiology. He will have an outpatient evaluation. He was already set up to see the clinic in [facility]. He is encouraged to keep his outpatient follow- up appointments. He is also encouraged to stop drinking alcohol. He was given treatment for gastritis with double dose Protonix and Carafate. His other home medications were reviewed and reconciled. No other changes were made. He is a full code. He should discontinue the use of alcohol products. - Time spent with patient Time with patient DS: Greater than 30 minutes (Total discharge time for this patient, including [id number] time, clinical documentation, medication reconciliation, and discharge planning was 36 minutes.) Diagnosis - Discharge Diagnosis (1) Acute alcohol intoxication Status: Resolved (2) Atypical chest pain Status: Resolved (3) Elevated liver enzymes Status: Chronic (4) Medical non-compliance Status: Chronic (5) Alcohol dependence Status: Chronic Discharge Plan - Discharge Data Disposition: Disch To Home/Self Care Condition at Discharge: Stable Discharge Diet: advance to your usual diet Activity: resume usual activities as tolerated Hygiene: no restrictions Contact your physician if you experience:: Nausea/Vomiting, Shortness of breath , Bleeding - Discharge Medications New Sucralfate Tab [Carafate Tab] 1 gm PO ACHS #120 tablet Pantoprazole Tab [Protonix Tab] 40 mg PO BID #60 tablet Continue chlordiazePOXIDE [Librium] 10 mg PO TID #18 capsule Multivitamin with Folic Acid [One Daily Essential Tablet] 400 mcg PO DAILY # 100 tablet Unknown Blood Pressure 0 mg PO DAILY Discontinued Pantoprazole Tab [Protonix Tab] 40 mg PO DAILY #30 tablet - Follow Up or Referral - Forms/Instructions Additional Discharge Instructions: Follow-up with her primary care physicians in [facility]. Exam - Constitutional Vitals: Period Temp Pulse Resp BP Sys/Maharaj Pulse Ox Last 24 Hr 96.8 F-98.7 F 71-105 16-20 104-147/68-104 21-100 Discharge Results Labs on day of discharge: Labs from last 24 hours 04/23/17 04/23/17 04/23/17 08:30 08:30 04:03 WBC RBC Hgb Hct MCV MCH MCHC RDW Plt Count MPV Neut % (Auto) Lymph % (Auto) [place] % (Auto) Eos % (Auto) Baso % (Auto) Neut # (Auto) Lymph # (Auto) [place] # (Auto) Eos # (Auto) Baso # (Auto) Immature Gran % Nucleated RBC % Immature Gran # Nucleated RBCs # Sodium 145 Potassium 4.0 Chloride 111 H Carbon Dioxide 23 Anion Gap 15.0 BUN 7 Creatinine 0.70 GFR Calculation 112 BUN/Creatinine Ratio 10.00 Glucose 72 L Calculated Osmolality 284.7 Lactic Acid 2.5 H Calcium 7.7 L Magnesium 2.5 H Total Bilirubin AST ALT Alkaline Phosphatase Troponin I Total Protein Albumin Globulin Albumin/Globulin Ratio Triglycerides Cholesterol LDL Cholesterol VLDL Cholesterol HDL Cholesterol Heart Disease Risk Ratio Amylase Lipase Urine Color Yellow Urine Appearance Clear Urine pH 5.0 Ur Specific [place] 1.013 Urine Protein Negative Urine Glucose (UA) Negative Urine Ketones Negative Urine Blood Negative Urine Nitrate Negative Urine Bilirubin Negative Urine Urobilinogen < 2.0 H Urine Leukocytes Negative Urine RBC 1 Urine WBC 1 Urine Bacteria Occasional Urine Mucus Occasional Ur Culture Indicated? Not indicated Urine Opiates Screen Positive H Ur Barbiturates Screen Negative Ur Phencyclidine Scrn Negative U Amphetamine/Methamph Negative U Benzodiazepines Scrn Negative U Cocaine Metab Screen Negative U Cannabinoids Screen Negative Serum Alcohol 04/23/17 04/22/17 04/22/17 04:03 23:55 23:55 WBC RBC Hgb Hct MCV MCH MCHC RDW Plt Count MPV Neut % (Auto) Lymph % (Auto) [place] % (Auto) Eos % (Auto) Baso % (Auto) Neut # (Auto) Lymph # (Auto) [place] # (Auto) Eos # (Auto) Baso # (Auto) Immature Gran % Nucleated RBC % Immature Gran # Nucleated RBCs # Sodium Potassium Chloride Carbon Dioxide Anion Gap BUN Creatinine GFR Calculation BUN/Creatinine Ratio Glucose Calculated Osmolality Lactic Acid Calcium Magnesium Total Bilirubin AST ALT Alkaline Phosphatase Troponin I < 0.015 < 0.015 Total Protein Albumin Globulin Albumin/Globulin Ratio Triglycerides 82 Cholesterol 191 LDL Cholesterol 85.0 VLDL Cholesterol 16.4 HDL Cholesterol 97 H Heart Disease Risk Ratio 1.97 Amylase Lipase Urine Color Urine Appearance Urine pH Ur Specific [place] Urine Protein Urine Glucose (UA) Urine Ketones Urine Blood Urine Nitrate Urine Bilirubin Urine Urobilinogen Urine Leukocytes Urine RBC Urine WBC Urine Bacteria Urine Mucus Ur Culture Indicated? Urine Opiates Screen Ur Barbiturates Screen Ur Phencyclidine Scrn U Amphetamine/Methamph U Benzodiazepines Scrn U Cocaine Metab Screen U Cannabinoids Screen Serum Alcohol 04/22/17 04/22/17 20:53 20:53 WBC 7.8 RBC 5.26 Hgb 17.1 Hct 49.5 MCV 94.1 MCH 33 MCHC 34.5 RDW 13.6 Plt Count 240 MPV 8.6 L Neut % (Auto) 44.9 Lymph % (Auto) 41.8 [place] % (Auto) 10.8 Eos % (Auto) 0.8 Baso % (Auto) 1.3 H Neut # (Auto) 3.5 Lymph # (Auto) 3.3 [place] # (Auto) 0.9 H Eos # (Auto) 0.1 Baso # (Auto) 0.1 Immature Gran % 0.4 Nucleated RBC % 0.0 Immature Gran # 0.03 Nucleated RBCs # 0.00 Sodium 144 Potassium 3.9 Chloride 106 Carbon Dioxide 25 Anion Gap 16.9 H BUN 5 L Creatinine 0.80 GFR Calculation 106 BUN/Creatinine Ratio 6.00 Glucose 104 Calculated Osmolality 282.8 Lactic Acid 2.4 H Calcium 8.5 Magnesium 2.5 H Total Bilirubin < 0.39 AST 77 H ALT 64 H Alkaline Phosphatase 143 H Troponin I < 0.015 Total Protein 8.3 Albumin 4.5 Globulin 3.8 H Albumin/Globulin Ratio 1.1 Triglycerides Cholesterol LDL Cholesterol VLDL Cholesterol HDL Cholesterol Heart Disease Risk Ratio Amylase 54 Lipase 220.0 Urine Color Urine Appearance Urine pH Ur Specific [place] Urine Protein Urine Glucose (UA) Urine Ketones Urine Blood Urine Nitrate Urine Bilirubin Urine Urobilinogen Urine Leukocytes Urine RBC Urine WBC Urine Bacteria Urine Mucus Ur Culture Indicated? Urine Opiates Screen Ur Barbiturates Screen Ur Phencyclidine Scrn U Amphetamine/Methamph U Benzodiazepines Scrn U Cocaine Metab Screen U Cannabinoids Screen Serum Alcohol 446 DS: Provider Date of admission: 04/22/17 22:44 Primary care physician: . No PCP Attending physician on admission: Mark Delgado MD Consults: 04/22/17 22:54 Consult to Physician [CONS] Routine Comment: recurrent visits to ER for chest pain Consulting Provider: Cardiology - [facility] Consult to Specialist Group: Cardiology Person Notified: Abel Date Notified: 04/23/17 Time Notified: 07:50 04/23/17 01:49 Consult to Pastoral Services [CONS] Routine Comment: Pastoral Screen: Request Radio Communications Mechanician Visit Discharging clinician: Monserrat Morton MD Expected date of discharge: 04/23/17
[2017-04-23] MEDS ORDERED: chlordiazePOXIDE 10 MG CAPSULE PO SCH (15:00)
[2017-04-23 15:55] VITALS: BP 107/64
[2017-04-23] MEDS ORDERED: SUCRALFATE 1 GM TABLET PO SCH (16:30)
[2017-04-24] MEDS ORDERED: ASPIRIN EC 81 MG TABLET PO SCH (09:00)
[2017-04-24] MEDS ORDERED: [UNRECOGNIZED DRUG - OTHER] PO SCH (09:00)
[2017-04-24] MEDS ORDERED: MULTIVITAMIN PO SCH (09:00)
[2017-04-24] MEDS ORDERED: FOLIC ACID PO SCH (09:00)
[2017-04-24] MEDS ORDERED: PANTOPRAZOLE 40 MG TABLET PO SCH (09:00)
== END 2017-04-23 15:07 | disposition home or self-care (01) ==
LOC: N.ED 19:45 → N.EDINP 19:45 → SUATTDRO 22:44 → N.TELEN 23:17
PROVIDERS: ADMIT Internal Medicine; ATTEND Family Medicine

== ENCOUNTER 2017-05-31 00:49 | Observation (INO) ==
[2017-05-31] MEDS ORDERED: ALUM/MAG/SIMETH/LIDO VISC 1:1 30 ML BOTTLE PO STA (01:25)
[2017-05-31] MEDS ORDERED: ONDANSETRON 4 MG/2 ML VIAL IV STA (01:25)
[2017-05-31] MEDS ORDERED: NITROGLYCERIN 2% OINT 1 INCH/GM PACK TOP STA (01:25)
[2017-05-31] MEDS ORDERED: SODIUM CHLORIDE 0.9% 500 ML IV STA (01:25)
[2017-05-31] MEDS ORDERED: ASPIRIN 325 MG TABLET PO STA (01:25)
--- NOTE | 2017-05-31 01:28 | EKG Report ---
Stationary ECG Study [facility] Test Date: 05/31/2017 12:58:24 AM Pat Name: YVETTE CONTE Department: Room: Gender: M [employer] Sanitarian: [place] : 1970 Requested by: Mariusz Ramos Order Number: [id number] Reading MD: BENIGNO HESS Intervals [place] Rate: 74 P: 51 LA: 152 QRS: -3 QRSD: 106 T: 53 QT: 392 QTc: 419 Interpretive Statements SINUS RHYTHM INCOMPLETE RIGHT BUNDLE BRANCH BLOCK LEFT AXIS DEVIATION Electronically Signed On 05-31-17 16:33:37 CDT by BENIGNO HESS [email or web address]
[2017-05-31] MEDS ORDERED: ONDANSETRON 4 MG/2 ML VIAL ONE (01:51)
[2017-05-31] MEDS ORDERED: NITROGLYCERIN 2% OINT 1 INCH/GM PACK TOP ONE (01:51)
[2017-05-31] MEDS ORDERED: ASPIRIN 325 MG TABLET ONE (01:52)
[2017-05-31] MEDS ORDERED: ALUM/MAG/SIMETH/LIDO VISC 1:1 30 ML BOTTLE PO ONE (01:52)
[2017-05-31 02:03] LABS: Basophils # 0.1 10*3/uL (0.0-0.2); Basophils % 1.3 % (0.0-0.8); Eosinophils # 0.1 10*3/uL (0.0-0.87); Eosinophils % 2.4 % (0.00-10.9); Hematocrit 44.3 VOL% (42.0-52.0); Hemoglobin 15.9 GM/DL (14.0-18.0); Immature Granulocytes % 0.3 %; Immature Granulocytes Absolute 0.02 #; Lymphocytes # 2.5 10*3/uL (1.4-4.0); Lymphocytes % 41.8 % (21.2-54.2); Mean Corpuscular HGB Conc 35.9 GM/DL (32-36); Mean Corpuscular Hemoglobin 34 PG (27-34); Mean Corpuscular Volume 94.3 FL (87-102); Mean Platelet Volume 8.7 FL (9.6-12.0); Monocytes # 0.7 10*3/uL (0.11-0.8); Monocytes % 11.5 % (1.7-12.7); Neutrophils # 2.5 10*3/uL (1.4-7.4); Neutrophils % 42.7 % (38.7-73.9); Platelet Count 248 T/CUMM (130-400); Red Cell Distribution Width 13.1 % (9.3-17.3); White Blood Count 5.9 T/CUMM (4-12)
--- NOTE | 2017-05-31 02:04 | Emergency Department Note ---
Martita Davis Emily, am scribing for, and in the presence of, Mariusz Flores MD 01: 28. Sandra Davis Charles R, MD, personally performed the services described in this documentation, ascribed by Irene Anders in my presence, and it is both accurate and complete . Arrival - Arrival Chief Complaint: Chest Pain Stated Complaint: chest pain ED Nursing Triage Note: Patient complains of chest pain that began yesterday. Denies nausea/vomiting. States that he was supposed to follow up with heart doctor at [facility] but missed appointment. Hx of alcohol abuse. States that he drank a six pack of beer today. Mode of Arrival: Ambulatory Limitations: No Limitations Source: Patient Time Seen by Provider: 05/31/17 01:11 - History of Present Illness HPI Narrative: Pt is a 47 y/o male who came to ED with c/o chest pain that started yesterday. Pt has been to ED couple of times for these sxs, however, April 22, 2017 his last visit in ED, pt was admitted and d/c with negative cardiac enzymes but treated for gastritis. 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 Pt reports he had a 6 pk today , but denies smoking. Onset (ago): day(s) Consistency: constant Severity: mild, moderate Severity scale (1-10): 4 Quality: aching Allergies/Adverse Reactions: Allergies Allergy/AdvReac Type Severity Reaction Status Date / Time No Known Allergies Allergy Verified 05/27/16 21:51 Home Medications: Home Medications Medication Instructions Recorded Confirmed Type Unable To Obtain [Unable to Obtain] 05/31/17 05/31/17 History Review of System - Review of System 12 point system: reviewed and no additional remarkable complaints except as stated - Review of System Constitutional: Absent: chills, fever Respiratory: Absent: respiratory distress Cardiovascular: Present: chest pain Gastrointestinal: Absent: abdominal pain, nausea, vomiting, diarrhea Musculoskeletal: Absent: arm pain, neck pain Skin: Absent: rash Neurological: Absent: headache Medical,Surgical,& Family Hx - Medical History Cardio: History of: Hypertension (Stopped meds x3 yrs ago.) No history of: Cardiac Dysrhythmia, CAD Psychological: History of: Depression, Psychiatric/Substance Abuse Tx (Alcohol rehab) Neurology: No history of: Cerebrovascular Accident (Pt denies) Endocrine: No history of: Diabetes Mellitus (NIDDM) Respiratory: No history of: COPD Gastrointestinal: History of: Liver Problems (cirrohsis) - Surgical History Surgical History: noncontributory - Family History Family History: Reports;: Family Heart Disease, Family Hypertension - Social History Smoking Status: Never smoker Frequency of Alcohol Use: Frequently Type of Drug Use: None Marital Status: Single Lives With:: Alone Functional capacity: independent ambulation Exam Vital Signs: Vital Signs Temperature 97.1 F L 05/31/17 00:53 Pulse Rate 76 05/31/17 00:53 Respiratory Rate 17 05/31/17 00:53 Blood Pressure 122/106 05/31/17 00:53 O2 Sat by Pulse Oximetry 98 05/31/17 00:53 - General General appearance: alert, appears intoxicated (smells of ETOH) - Head Head exam: Present: atraumatic, normocephalic - Eye Eye exam: Present: PERRL, EOMI - ENT ENT exam: Present: mucous membranes moist. Absent: mucous membranes dry - Neck Neck exam: Present: full ROM, trachea midline - Chest Chest inspection: Present: symmetric chest wall rise - Respiratory Respiratory exam: Present: rhonchi. Absent: accessory muscle use - Cardiovascular Cardiovascular exam: Present: regular rate, normal rhythm, normal heart sounds - Abdominal Exam Abdominal exam: Present: soft, distention (nodular liver). Absent: tenderness, guarding, rebound - Extremities Exam Extremities exam: Present: full ROM. Absent: pedal edema - Neurological Exam Neurological exam: Present: alert, oriented X3, CN II-XII intact. Absent: motor sensory deficit - Skin Skin exam: Present: warm, dry Course - Consultations Consultation #1: Hospitalist will admit patient Time: 02:47 Results - Labs CBC & BMP: 05/31/17 01:03 05/31/17 01:03 Lab Results: I have reviewed the patients labs Labs: Laboratory Tests 05/31/17 01:03 WBC 5.9 MPV 8.7 L Baso % (Auto) 1.3 H Laboratory Tests 05/31/17 05/31/17 05/31/17 01:03 01:03 01:03 Sodium 142 Potassium 3.6 Chloride 106 Carbon Dioxide 25 BUN 5 L Creatinine 0.60 L GFR Calculation 122 Glucose 82 Calcium 8.4 L AST 64 H Troponin I < 0.015 B-Natriuretic Peptide < 2 L Globulin 3.9 H Albumin/Globulin Ratio 1.0 L Serum Alcohol 321 - EKG EKG results: interpreted by IAN, sinus rhythm (74) Critical Care Time Critical Care Time: No Disposition Clinical Impression: Atypical chest pain, Elevated liver enzymes, Medical non-compliance, Alcohol dependence, Acute alcohol intoxication Case discussed with: patient Disposition: Still a Patient Condition: Stable Time of Disposition: 02:49
[2017-05-31 02:35] LABS: Bilirubin,Total 0.7 MG/DL (0.2-1.0); Calcium 8.4 MG/DL (8.5-10.1); Magnesium 2.2 MG/DL (1.8-2.4); Osmolality,Calculated 278.1 MOS/KG (273-304); Potassium 3.6 MMOL/L (3.5-5.1); Total Protein 7.9 G/DL (6.4-8.3)
[2017-05-31] MEDS ORDERED: ONDANSETRON 4 MG/2 ML VIAL IV PRN (03:19)
[2017-05-31] MEDS ORDERED: NITROGLYCERIN SL 0.4 MG TABLET SL PRN (03:19)
[2017-05-31] MEDS ORDERED: ACETAMINOPHEN 325 MG TABLET PO PRN (03:19)
[2017-05-31] MEDS ORDERED: SODIUM CHLORIDE 0.45% 1,000 ML IV SCH (03:30)
[2017-05-31] MEDS ORDERED: LORazepam 2 MG/1 ML VIAL IV PRN (03:36)
--- NOTE | 2017-05-31 03:47 | Hospitalist History & Physical ---
Assessment and Plan - Time spent with patient Time spent with patient: Greater than 30 minutes (1) Atypical chest pain Status: Acute Assessment and plan: Admit to hospitalist services. Monitored bed. Consult cardiology. Patient never followed up with cardiology from previous admissions. O2 per unit protocol. Serial troponins and EKG. Lipid panel in AM. Repeat BMP in AM. ASA 325 mg daily. Nitroglycerin 0.4 mg SL Q5 minutes PRN. Cardiac diet. Patient reports taking BP medications but doesn't know what they are. Currently BP is stable. No BP medications at this time. Continue monitor. Current Visit: Yes (2) Acute alcohol intoxication Status: Acute Assessment and plan: 1/2 NS at 75 ml/hr. Folic acid 1 mg PO daily. Thiamine 100 mg PO daily Multivitamin 1 tab PO daily. Ativan 1 mg Q3 hours PRN agitation/withdrawal symptoms. Current Visit: Yes (3) Hypertension Status: Chronic Assessment and plan: Cardiac diet. Patient reports taking BP medications but doesn't know what they are. Currently BP is stable. No BP medications at this time. Continue monitor. Current Visit: No Qualifiers: Hypertension type: essential hypertension Qualified Code(s): I10 - Essential (primary) hypertension (4) DVT prophylaxis Status: Acute Assessment and plan: Lovenox 40 mg SQ daily. Current Visit: Yes History of Present Illness Chief complaint: Chest pain History of present illness: Mr. Scott is a 47 year old male with a history of HTN, GERD, cirrhosis, and alcoholism who presented to the ED this morning with complaints of chest pain. Mr. Scott describes his pain as sudden onset with 10/10 intensity, located over left chest and lasting for approximately 30 seconds. He further reports that the pain was so intense that it knocked him down and had associated dizziness. He was mowing at the time the episode occurred. He reports that he had one other episode of similar pain on the day prior. He denies any shortness of breath, nausea, vomiting, or loss of consciousness. Currently, he reports that his chest pain is gone but he is still dizzy. Notably, his blood alcohol level was 321. He reports taking 5 routine medications but doesn't know any of them. He reports that he was once told to follow up with cardiology but he never did. Hospitalist services were consulted for further evaluation and treatment, and the patient will be admitted for observation. Home Medications Medication Instructions Recorded Confirmed Type Unable To Obtain [Unable to Obtain] 05/31/17 05/31/17 History Allergies Allergy/AdvReac Type Severity Reaction Status Date / Time No Known Allergies Allergy Verified 05/27/16 21:51 Medical,Surgical,& Family Hx - Medical History Cardio: History of: Hypertension (Stopped meds x3 yrs ago.) No history of: Cardiac Dysrhythmia, CAD Psychological: History of: Depression, Psychiatric/Substance Abuse Tx (Alcohol rehab) Neurology: No history of: Cerebrovascular Accident (Pt denies) HEENT: No history of: Ear Problem, Eye Problem Endocrine: No history of: Diabetes Mellitus (NIDDM) Respiratory: No history of: COPD Genitourinary: No history of: Problems Gastrointestinal: History of: Liver Problems (cirrohsis) Hematology: No history of: Bleeding Problems, Clotting Problems - Family History Family History: Reports;: Family Cancer, Family Heart Disease, Family Hypertension - Social History Smoking Status: Never smoker Have you smoked in the last 12 months: No Frequency of Alcohol Use: Frequently Type of Drug Use: None Marital Status: Lives With:: Parent Functional capacity: independent ambulation 12 point system: reviewed and no additional remarkable complaints except as stated - Constitutional Constitutional: Absent: chills, fever(s), headache(s), weakness - EENT Eyes: Absent: blurry vision, diplopia, loss of vision Ears: Absent: decreased hearing, ear discharge, ear pain Nose, mouth and throat: Absent: nasal congestion, sore throat - Cardiovascular Cardiovascular: Present: chest pain with activity. Absent: dyspnea, dyspnea on exertion, edema, orthopnea, palpitations - Respiratory Respiratory: Absent: cough, dyspnea, wheezing - Gastrointestinal Gastrointestinal: Absent: abdominal pain, constipation, diarrhea, nausea, vomiting - Genitourinary Genitourinary: Absent: dysuria, urinary frequency - Musculoskeletal Musculoskeletal: Absent: arthralgias, back pain, joint swelling, muscle weakness , myalgias - Neurological Neurological: Present: dizziness. Absent: syncope - Psychiatric Psychiatric: Present: depression. Absent: anxiety, homicidal ideation, suicidal ideation - Endocrine Endocrine: Absent: cold intolerance, polydipsia, polyphagia, polyuria - Hematologic/Lymphatic Hematologic/Lymphatic: Absent: easy bleeding, easy bruising Exam - Constitutional Vitals: Period Temp Pulse Resp BP Sys/Maharaj Pulse Ox Last 24 Hr 97.1 F 76 17 122/106 98 General appearance: normal weight, no acute distress - Head Head exam: Present: normocephalic, atraumatic - Eye Eye exam: Present: EOMI, other (bruising over left eye). Absent: conjunctival injection, scleral icterus Pupils: Present: CASSIE, normal accommodation - ENT ENT exam: Present: normal exam - Neck Neck exam: Present: normal inspection. Absent: lymphadenopathy, tenderness, thyromegaly - Respiratory Respiratory exam: Present: clear to auscultation bilaterally. Absent: accessory muscle use, chest wall tenderness - Cardiovascular Cardiovascular exam: Present: regular rate and rhythm. Absent: diastolic murmur , JVD, systolic murmur - GI/Abdominal GI/Abdominal exam: Present: normal bowel sounds, soft. Absent: tenderness, rebound - Extremities Exam Extremities exam: Present: normal inspection, normal capillary refill. Absent: edema - Neurological Exam Neurological exam: Present: oriented X3, other (lethargic with mildly slurred speech) - Psychiatric Psychiatric exam: Present: depressed. Absent: homicidal ideation, suicidal ideation - Skin Skin exam: Present: normal color, warm, dry Results - Labs CBC & BMP: 05/31/17 01:03 05/31/17 01:03 Lab Results: I have reviewed the past 24 hour labs
--- NOTE | 2017-05-31 04:36 | EKG Report ---
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
[2017-05-31 04:39] LABS: Apearance,Urine CLEAR (Clear); Bilirubin,Urine Negative (Negative); Blood, Urine Negative (Negative); Glucose,Urine (UA) Negative (Negative); Hyaline Casts,Urine 1 /LPF (0-3); Ketones,Urine Negative (Negative); Nitrite,Urine Negative (Negative); Protein,Urine Negative; Urine Color Straw (Yellow); Urine Specific Gravity 1.003 (1.001-1.035); Urine Urobilinogen < 2.0 EU/DL (0.2-1.0)
[2017-05-31 05:05] LABS: Barbiturates Screen,Urine Negative (Negative); Benzodiazepines Screen,Urine Negative (Negative); Cannabinoid Screen,Urine Negative (Negative); Opiate Screen,Urine Negative (Negative); Phencyclidine Screen,Urine Negative (Negative)
[2017-05-31] MEDS ORDERED: PNEUMOCOCCAL VACCINE (23 VALENT) 0.5 ML VIAL IM ONE (05:51)
[2017-05-31 06:15] LABS: Calcium 8.6 MG/DL (8.5-10.1); Potassium 4.1 MMOL/L (3.5-5.1); Risk Ratio 2.4
--- NOTE | 2017-05-31 08:22 | EKG Report ---
Stationary ECG Study [facility] Test Date: 05/31/2017 7:59:19 AM Pat Name: YVETTE CONTE Department: Room: 289 Gender: M Manager Mobile: DARIN : 1970 Requested by: Mariusz Ramos Order Number: [id number] Reading MD: YVETTE STEPHENS Intervals [place] Rate: 71 P: 56 RI: 153 QRS: 11 QRSD: 98 T: 31 QT: 396 QTc: 419 Interpretive Statements SINUS RHYTHM Electronically Signed On 06-01-17 07:01:37 CDT by YVETTE STEPHENS [email or web address]
--- NOTE | 2017-05-31 08:42 | XRay Report ---
History is chest pain Comparison 04/22/2017 Heart is normal in size. Patient is rotated There is slight increasing patchy opacity in the left lung base with slight elevation left diaphragm. Right lung is clear. Impression: Slight increasing left basilar infiltrate/atelectasis. PROCEDURE INTERPRETED AT [facility] DEPARTMENT OF RADIOLOGY Final Report Signed by: Dr. Ronda Vaca
[2017-05-31] MEDS ORDERED: PANTOPRAZOLE 40 MG TABLET PO SCH (09:00)
[2017-05-31] MEDS ORDERED: MULTIVITAMIN (CENTRUM) TABLET PO SCH (09:00)
[2017-05-31] MEDS ORDERED: ASPIRIN EC 325 MG TABLET PO SCH (09:00)
[2017-05-31] MEDS ORDERED: THIAMINE 100 MG TABLET PO SCH (09:00)
[2017-05-31] MEDS ORDERED: FOLIC ACID 1 MG TABLET PO SCH (09:00)
[2017-05-31] MEDS ORDERED: ENOXAPARIN 40 MG/0.4 ML SYRINGE SUBCUT SCH (09:00)
[2017-05-31 11:55] VITALS: BP 129/82
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
--- NOTE | 2017-05-31 12:57 | Discharge Summary ---
Hospital Course - Hospital Course Hospital Course: Mr Scott was admitted about 12 hours prior to discharge. See H&P for details. Dr Kuhn saw him and does not recommend cardiac workup in hospital, but if he would like he can follow up with DR Agrawal in clinic. His chest pain has been evaluated and he has been diagnosed with indigestion/reflux and has been on PPI for a couple of days. He wants to go home so he can go to work tonight. I recommended to him to take protonix as he has been doing and see Dr Agrawal in clinic for stress test. Additionally, he was intoxicated at presentation and he should stop drinking alcohol as this can exacerbate GERD. - Time spent with patient Time with patient DS: Less than 30 minutes Specialty Discharge - Follow Up or Referrals Follow up with: Rogelio Agrawal MD [Physician] - 1 Week (for outpatient stress test on 06/07 at 7:45 at [facility] must be npo at midnight see Dr. Agrawal on 06/20 at 9:00 at [facility]) Discharge Plan - Discharge Data Disposition: Disch To Home/Self Care Condition at Discharge: Stable Discharge Diet: heart healthy Activity: resume usual activities as tolerated - Discharge Medications New Folic Acid Tab 1 mg PO DAILY tablet Pantoprazole Tab [Protonix Tab] 40 mg PO DAILY #30 tablet Thiamine Tab [Vitamin B1 Tab] 100 mg PO DAILY tablet Aspirin Chew Tab 81 mg PO DAILY #100 tablet - Follow Up or Referral Follow Up: Rogelio Agrawal MD [Physician] - 1 Week (for outpatient stress test on 06/07 at 7:45 at [facility] must be npo at midnight see Dr. Agrawal on 06/20 at 9:00 at [facility]) - Forms/Instructions Instructions: Cardiac Stress Test (GEN) Additional Discharge Instructions: stop drinking alcohol because it is probably making your indigestion worse. See Dr Agrawal in the clinic to complete your heart evaluation. Exam - Constitutional Vitals: Period Temp Pulse Resp BP Sys/Maharaj Pulse Ox Last 24 Hr 96.8 F-98 F 72-78 16-20 115-136/72-106 96-98 Discharge Results Procedures and tests throughout hospitalization: Pending Orders 06/01/17 04:00 BMP w/ Mg [Basic Metabolic Panel w/Mg] IN AM CBC [Comp Blood Count Auto Diff] IN AM Labs on day of discharge: Labs from last 24 hours 05/31/17 05/31/17 05/31/17 Unknown 09:24 06:58 WBC RBC Hgb Hct MCV MCH MCHC RDW Plt Count MPV Neut % (Auto) Lymph % (Auto) [place] % (Auto) Eos % (Auto) Baso % (Auto) Neut # (Auto) Lymph # (Auto) [place] # (Auto) Eos # (Auto) Baso # (Auto) Immature Gran % Nucleated RBC % Immature Gran # Nucleated RBCs # Immature Plt Fraction Sodium Potassium Chloride Carbon Dioxide Anion Gap BUN Creatinine GFR Calculation BUN/Creatinine Ratio Glucose Calculated Osmolality Calcium Magnesium Total Bilirubin AST ALT Alkaline Phosphatase Troponin I < 0.015 < 0.015 B-Natriuretic Peptide Total Protein Albumin Globulin Albumin/Globulin Ratio Triglycerides Cholesterol LDL Cholesterol VLDL Cholesterol HDL Cholesterol Heart Disease Risk Ratio Lipase Urine Color Urine Appearance Urine pH Ur Specific [place] Urine Protein Urine Glucose (UA) Urine Ketones Urine Blood Urine Nitrate Urine Bilirubin Urine Urobilinogen Urine Leukocytes Hyaline Casts Ur Culture Indicated? Urine Opiates Screen Negative Ur Barbiturates Screen Negative Ur Phencyclidine Scrn Negative U Amphetamine/Methamph Negative U Benzodiazepines Scrn Negative U Cocaine Metab Screen Negative U Cannabinoids Screen Negative Serum Alcohol 05/31/17 05/31/17 05/31/17 04:54 04:54 01:42 WBC RBC Hgb Hct MCV MCH MCHC RDW Plt Count MPV Neut % (Auto) Lymph % (Auto) [place] % (Auto) Eos % (Auto) Baso % (Auto) Neut # (Auto) Lymph # (Auto) [place] # (Auto) Eos # (Auto) Baso # (Auto) Immature Gran % Nucleated RBC % Immature Gran # Nucleated RBCs # Immature Plt Fraction Sodium 143 Potassium 4.1 Chloride 106 Carbon Dioxide 30 Anion Gap 11.1 BUN 4 L Creatinine 0.70 GFR Calculation 115 BUN/Creatinine Ratio 5.00 L Glucose 81 Calculated Osmolality 280.0 Calcium 8.6 Magnesium Total Bilirubin AST ALT Alkaline Phosphatase Troponin I < 0.015 B-Natriuretic Peptide Total Protein Albumin Globulin Albumin/Globulin Ratio Triglycerides 120 Cholesterol 230 H LDL Cholesterol 114.0 VLDL Cholesterol 24.0 HDL Cholesterol 96 H Heart Disease Risk Ratio 2.40 Lipase Urine Color Straw Urine Appearance Clear Urine pH 5.0 Ur Specific [place] 1.003 Urine Protein Negative Urine Glucose (UA) Negative Urine Ketones Negative Urine Blood Negative Urine Nitrate Negative Urine Bilirubin Negative Urine Urobilinogen < 2.0 H Urine Leukocytes Negative Hyaline Casts 1 Ur Culture Indicated? Not indicated Urine Opiates Screen Ur Barbiturates Screen Ur Phencyclidine Scrn U Amphetamine/Methamph U Benzodiazepines Scrn U Cocaine Metab Screen U Cannabinoids Screen Serum Alcohol 05/31/17 05/31/17 05/31/17 01:03 01:03 01:03 WBC 5.9 RBC 4.70 Hgb 15.9 Hct 44.3 MCV 94.3 MCH 34 MCHC 35.9 RDW 13.1 Plt Count 248 MPV 8.7 L Neut % (Auto) 42.7 Lymph % (Auto) 41.8 [place] % (Auto) 11.5 Eos % (Auto) 2.4 Baso % (Auto) 1.3 H Neut # (Auto) 2.5 Lymph # (Auto) 2.5 [place] # (Auto) 0.7 Eos # (Auto) 0.1 Baso # (Auto) 0.1 Immature Gran % 0.3 Nucleated RBC % 0.0 Immature Gran # 0.02 Nucleated RBCs # 0.00 Immature Plt Fraction 0.0 Sodium Potassium Chloride Carbon Dioxide Anion Gap BUN Creatinine GFR Calculation BUN/Creatinine Ratio Glucose Calculated Osmolality Calcium Magnesium Total Bilirubin AST ALT Alkaline Phosphatase Troponin I < 0.015 B-Natriuretic Peptide < 2 L Total Protein Albumin Globulin Albumin/Globulin Ratio Triglycerides Cholesterol LDL Cholesterol VLDL Cholesterol HDL Cholesterol Heart Disease Risk Ratio Lipase Urine Color Urine Appearance Urine pH Ur Specific [place] Urine Protein Urine Glucose (UA) Urine Ketones Urine Blood Urine Nitrate Urine Bilirubin Urine Urobilinogen Urine Leukocytes Hyaline Casts Ur Culture Indicated? Urine Opiates Screen Ur Barbiturates Screen Ur Phencyclidine Scrn U Amphetamine/Methamph U Benzodiazepines Scrn U Cocaine Metab Screen U Cannabinoids Screen Serum Alcohol 05/31/17 01:03 WBC RBC Hgb Hct MCV MCH MCHC RDW Plt Count MPV Neut % (Auto) Lymph % (Auto) [place] % (Auto) Eos % (Auto) Baso % (Auto) Neut # (Auto) Lymph # (Auto) [place] # (Auto) Eos # (Auto) Baso # (Auto) Immature Gran % Nucleated RBC % Immature Gran # Nucleated RBCs # Immature Plt Fraction Sodium 142 Potassium 3.6 Chloride 106 Carbon Dioxide 25 Anion Gap 14.6 BUN 5 L Creatinine 0.60 L GFR Calculation 122 BUN/Creatinine Ratio 8.00 Glucose 82 Calculated Osmolality 278.1 Calcium 8.4 L Magnesium 2.2 Total Bilirubin 0.70 AST 64 H ALT 52 Alkaline Phosphatase 112 Troponin I B-Natriuretic Peptide Total Protein 7.9 Albumin 4.0 Globulin 3.9 H Albumin/Globulin Ratio 1.0 L Triglycerides Cholesterol LDL Cholesterol VLDL Cholesterol HDL Cholesterol Heart Disease Risk Ratio Lipase 185.0 Urine Color Urine Appearance Urine pH Ur Specific [place] Urine Protein Urine Glucose (UA) Urine Ketones Urine Blood Urine Nitrate Urine Bilirubin Urine Urobilinogen Urine Leukocytes Hyaline Casts Ur Culture Indicated? Urine Opiates Screen Ur Barbiturates Screen Ur Phencyclidine Scrn U Amphetamine/Methamph U Benzodiazepines Scrn U Cocaine Metab Screen U Cannabinoids Screen Serum Alcohol 321 DS: Provider Date of admission: 05/31/17 03:19 Primary care physician: . No PCP Attending physician on admission: Fatou Jose NP Consults: 05/31/17 03:33 Consult to Physician [CONS] Routine Comment: Chest pain Consulting Provider: Beverley Kuhn Consult to Specialist Group: Cardiology Person Notified: [email or web address] Date Notified: 05/31/17 Time Notified: 07:30 Discharging clinician: Felicia Abbott MD
== END 2017-05-31 15:21 | disposition home or self-care (01) ==
LOC: N.ED 00:49 → N.EDINP 00:49 → SUATTDRO 03:19 → N.TELEN 04:02
PROVIDERS: ADMIT Nurse Practitioner Family; ATTEND Physician Assistant

== ENCOUNTER 2018-01-26 21:48 | Observation (INO) ==
[2018-01-27] MEDS ORDERED: ONDANSETRON 4 MG/2 ML VIAL IV STA (00:03)
[2018-01-27 00:26] LABS: INR 0.9
[2018-01-27 00:36] LABS: Alanine Aminotransferase 27 U/L (16-61); Albumin 4.1 G/DL (3.4-5.0); Alkaline Phosphatase 77 U/L (45-117); Aspartate Amino Transferase 23 U/L (0-37); Bilirubin,Total < 0.39 MG/DL (0.2-1.0); Blood Urea Nitrogen 9 MG/DL (7-18); Glucose 96 MG/DL (74-106); Osmolality,Calculated 281.1 MOS/KG (273-304); Potassium 4.5 MMOL/L (3.5-5.1); Sodium 142 MMOL/L (136-145); Total Protein 7.3 G/DL (6.4-8.3); Troponin I Only < 0.015 NG/ML (0.00-0.045)
[2018-01-27 00:39] LABS: Basophils # 0.1 10*3/uL (0.0-0.2); Basophils % 1.5 % (0.0-0.8); Eosinophils # 0.2 10*3/uL (0.0-0.87); Eosinophils % 2.4 % (0.00-10.9); Hematocrit 46.6 VOL% (42.0-52.0); Hemoglobin 15.7 GM/DL (14.0-18.0); Immature Granulocytes % 0.4 %; Immature Granulocytes Absolute 0.03 #; Lymphocytes # 3.1 10*3/uL (1.4-4.0); Lymphocytes % 43.5 % (21.2-54.2); Mean Corpuscular HGB Conc 33.7 GM/DL (32-36); Mean Corpuscular Hemoglobin 31 PG (27-34); Mean Platelet Volume 9.8 FL (9.6-12.0); Monocytes # 0.7 10*3/uL (0.11-0.8); Monocytes % 9.6 % (1.7-12.7); Neutrophils % 42.6 % (38.7-73.9); Platelet Count 291 T/CUMM (130-400); Red Blood Count 5.01 MC/CUMM (3.8-5.5); Red Cell Distribution Width 13.4 % (9.3-17.3); White Blood Count 7.1 T/CUMM (4-12)
[2018-01-27] MEDS ORDERED: ONDANSETRON 4 MG/2 ML VIAL ONE (00:44)
[2018-01-27 00:49] LABS: Apearance,Urine CLEAR (Clear); Bilirubin,Urine Negative (Negative); Blood, Urine Negative (Negative); Glucose,Urine (UA) Negative (Negative); Ketones,Urine Negative (Negative); Nitrite,Urine Negative (Negative); Protein,Urine Negative; Urine Color Straw (Yellow); Urine Urobilinogen < 2.0 EU/DL (0.2-1.0); WBC,Urine <1 /HPF (0-6)
[2018-01-27] MEDS ORDERED: MORPHINE 4 MG/1 ML VIAL IV PRN (03:31)
[2018-01-27] MEDS ORDERED: ONDANSETRON 4 MG/2 ML VIAL IV PRN (03:31)
[2018-01-27] MEDS ORDERED: ASPIRIN CHEW 81 MG TABLET PO ONE (03:37)
[2018-01-27] MEDS ORDERED: NITROGLYCERIN SL 0.4 MG TABLET SL PRN (03:39)
[2018-01-27] MEDS ORDERED: LORazepam 2 MG/1 ML VIAL IV PRN (03:43)
[2018-01-27 04:26] LABS: Barbiturates Screen,Urine Negative (Negative); Benzodiazepines Screen,Urine Negative (Negative); Cannabinoid Screen,Urine Negative (Negative); Opiate Screen,Urine Negative (Negative); Phencyclidine Screen,Urine Negative (Negative)
[2018-01-27 04:41] LABS: Risk Ratio 2.2; Thyroid Stimulating Hormone 0.919 uIU/ml (0.358-3.74); VLDL CHOLESTEROL 13.2 MG/DL
[2018-01-27] MEDS: ASPIRIN CHEW 81 MG TABLET PO SCH (08:59)
[2018-01-27] MEDS: PANTOPRAZOLE 40 MG TABLET PO SCH (09:00)
[2018-01-27] MEDS: FOLIC ACID 1 MG TABLET PO SCH ×2 (09:00→21:11)
[2018-01-27] MEDS: METOPROLOL TARTRATE 25 MG TABLET PO SCH ×2 (09:00→21:11)
[2018-01-27] MEDS: DOCUSATE SODIUM 100 MG CAPSULE PO SCH ×2 (09:00→21:11)
[2018-01-27] MEDS: ENOXAPARIN 40 MG/0.4 ML SYRINGE SUBCUT SCH (09:00)
[2018-01-27] MEDS: MULTIVITAMIN LIQUID (CENTRUM) 60 ML BOTTLE PO SCH (11:34)
[2018-01-27] MEDS ORDERED: AMITRIPTYLINE 10 MG TABLET PO SCH (21:00)
[2018-01-28 08:22] VITALS: BP 158/97
[2018-01-28] MEDS: MULTIVITAMIN LIQUID (CENTRUM) 60 ML BOTTLE PO SCH (08:50)
[2018-01-28] MEDS: METOPROLOL TARTRATE 25 MG TABLET PO SCH (08:51)
[2018-01-28] MEDS: PANTOPRAZOLE 40 MG TABLET PO SCH (08:51)
[2018-01-28] MEDS: DOCUSATE SODIUM 100 MG CAPSULE PO SCH (08:51)
[2018-01-28] MEDS: ENOXAPARIN 40 MG/0.4 ML SYRINGE SUBCUT SCH (08:51)
[2018-01-28] MEDS: FOLIC ACID 1 MG TABLET PO SCH (08:51)
[2018-01-28] MEDS: ASPIRIN CHEW 81 MG TABLET PO SCH (08:51)
== END 2018-01-28 12:30 | disposition home or self-care (01) ==
LOC: EDBD → EDUNIT# → N.EDINP 21:48 → N.ED 21:48 → N.CC 01-27 04:24
PROVIDERS: ADMIT Internal Medicine; ATTEND Internal Medicine

== ENCOUNTER 2019-08-16 13:02 | Observation (INO) ==
[2019-08-16 13:43] LABS: Basophils # 0.1 10*3/uL (0.0-0.2); Basophils % 1.6 % (0.0-0.8); Eosinophils # 0.1 10*3/uL (0.0-0.87); Eosinophils % 0.9 % (0.00-10.9); Hematocrit 47.2 VOL% (42.0-52.0); Immature Granulocytes % 0.3 %; Immature Granulocytes Absolute 0.02 #; Lymphocytes # 2.8 10*3/uL (1.4-4.0); Lymphocytes % 40.5 % (21.2-54.2); Mean Corpuscular HGB Conc 33.9 GM/DL (32-36); Mean Corpuscular Volume 98.7 FL (87-102); Mean Platelet Volume 8.4 FL (9.6-12.0); Monocytes % 11.5 % (1.7-12.7); Neutrophils % 45.2 % (38.7-73.9); Platelet Count 271 T/CUMM (130-400); Red Blood Count 4.78 MC/CUMM (3.8-5.5); Red Cell Distribution Width 12.3 % (9.3-17.3); White Blood Count 6.8 T/CUMM (4-12)
[2019-08-16 13:53] LABS: INR 0.9; PT Patient Result 10.2 SECS (9.6-12.2); Partial Thromboplastin Time 25.3 SECS (20.8-36.0)
[2019-08-16 14:09] LABS: Apearance,Urine CLEAR (Clear); Bilirubin,Urine Negative (Negative); Blood, Urine Negative (Negative); Glucose,Urine (UA) Negative (Negative); Ketones,Urine Negative (Negative); Nitrite,Urine Negative (Negative); Protein,Urine Negative; RBC,Urine 3 /HPF (0-4); Urine Color Straw (Yellow); Urine Specific Gravity 1.004 (1.001-1.035); Urine Urobilinogen < 2.0 EU/DL (0.2-1.0); WBC,Urine <1 /HPF (0-6)
[2019-08-16 14:10] LABS: Barbiturates Screen,Urine Negative (Negative); Benzodiazepines Screen,Urine Negative (Negative); Cannabinoid Screen,Urine Negative (Negative); Opiate Screen,Urine Negative (Negative); Phencyclidine Screen,Urine Negative (Negative)
[2019-08-16] MEDS ORDERED: THIAMINE INJ 100 MG, FOLIC ACID INJ 1 MG, MAGNESIUM SULF INJ 2 GM, MULTIVITAMIN INJ 10 ... IV ONE (14:18)
[2019-08-16 14:21] LABS: Bilirubin,Total 0.9 MG/DL (0.2-1.0); Calcium 8.5 MG/DL (8.5-10.1); Osmolality,Calculated 277.3 MOS/KG (273-304); Salicylate < 2.8 MG/DL (2.8-20); Total Protein 7.6 G/DL (6.4-8.3)
[2019-08-16 14:27] LABS: Acetaminophen < 2.0 UG/ML (10-30)
[2019-08-16] MEDS ORDERED: ONDANSETRON 4 MG/2 ML VIAL IV PRN (19:17)
[2019-08-16] MEDS ORDERED: ACETAMINOPHEN 325 MG TABLET PO PRN (19:17)
[2019-08-16] MEDS ORDERED: SODIUM CHLORIDE 0.9% 1,000 ML IV STA (19:31)
[2019-08-16] MEDS ORDERED: LORazepam 2 MG/1 ML VIAL ONE (19:38)
[2019-08-16] MEDS: SODIUM CHLORIDE 0.45% 1,000 ML IV SCH (19:46)
[2019-08-16] MEDS: LORazepam 2 MG/1 ML VIAL IV PRN (19:46)
[2019-08-17 04:32] LABS: Bilirubin,Total 0.9 MG/DL (0.2-1.0); Calcium 7.8 MG/DL (8.5-10.1); Osmolality,Calculated 278.1 MOS/KG (273-304); Total Protein 6.2 G/DL (6.4-8.3)
[2019-08-17] MEDS: LORazepam 2 MG/1 ML VIAL IV PRN (05:33)
[2019-08-17] MEDS: SODIUM CHLORIDE 0.45% 1,000 ML IV SCH (05:35)
[2019-08-17] MEDS: amLODIPine 5 MG TABLET PO SCH ×2 (07:14→09:21)
[2019-08-17 08:43] VITALS: BP 128/90
[2019-08-17] MEDS ORDERED: MULTIVITAMIN (CENTRUM) TABLET PO SCH (09:00)
[2019-08-17] MEDS ORDERED: FOLIC ACID 1 MG TABLET PO SCH (09:00)
[2019-08-17] MEDS ORDERED: PANTOPRAZOLE 40 MG TABLET PO SCH (09:00)
[2019-08-17] MEDS ORDERED: THIAMINE 100 MG TABLET PO SCH (09:00)
== END 2019-08-17 11:34 ==
LOC: N.EDINP 13:02 → N.ED 13:02 → N.4E 20:03
PROVIDERS: ADMIT Hospitalist; ATTEND Hospitalist